=== PATIENT | female | born 1930 | race Caucasian/White ===

== ENCOUNTER 2016-11-03 20:44 | Inpatient (IN) | payer MEDICARE ==
[~2016-11-03] VITALS: Ht 165.1 cm; Wt 83.1 kg
[~2016-11-03 20:44] MED LIST: ACAR25TA2 PO; ACAR25TA9 PO; ACID1TAB7 PO; AMIT25TA PO; AMLO10TA2 PO; ASPI-621 PO; ATOR20TA PO; ATOR40TA78 PO; BACL-19 PO; BENA40TA2 PO; CLOP75TA22 PO; CYCL-259 PO; FERR325T20 PO; FLUT16SP NAS; GEMF600T3 PO; GLIP10TA20 PO; GLIP5POW PO; GLIP5TAB10 PO; HYDR-3138 PO; HYDR-3343 PO; INSU100I28 SQ-INSULIN; INSU100V13 SC; LACT1CAP24 PO; LEVO500T33 PO; LISI-167 PO; LISI-170 PO; MAGN400T26 PO; MAGN400T7 PO; MERO1PIG IV; METF10002 PO; METF850T PO; METO25TA35 PO; OMEP-110 PO; POLY17PO5 PO; RIVA15TA PO; RIVA20TA PO; SENN1TAB7 PO; SITA50TA PO; SPIR25TA3 PO; SPIR50TA2 PO; SULF1TAB24 PO; TICA90TA PO; TRAM-28 PO; TRAM50TA2 PO
[2016-11-03] MEDS ORDERED: SODIUM CHLORIDE 0.9% 1,000 ML IV ONE (21:08)
[2016-11-03] MEDS ORDERED: ROSU20TA PO (21:27)
[2016-11-03] MEDS ORDERED: MORPHINE SULFATE 4 MG/ML, 1ML IVPush PRN (21:30)
[2016-11-03] MEDS ORDERED: SODIUM CHLORIDE FLUSH 10ML SYR IVF ONE (21:30)
[2016-11-03 21:39] LABS: ASPARTATE AMINO TRANSFERASE 12 U/L (15-37); BLOOD UREA NITROGEN 17 mg/dL (7-18)
[2016-11-03 21:46] LABS: IS PT STATUS REG ER OR PRE ER? YES
[2016-11-03 23:57] VITALS: BP 190/77
[2016-11-04] MEDS ORDERED: HYDROcodone/APAP 5/325 TABLET PO SCH
[2016-11-04 00:04] VITALS: BP 190/77
[2016-11-04 01:09] VITALS: BP 169/81
[2016-11-04] MEDS: ATORVASTATIN 40 MG TABLET PO SCH ×2 (01:13→20:52)
[2016-11-04] MEDS: HEPARIN 5,000 UNITS/ML, 1ML SQ SCH ×3 (01:13→16:31)
[2016-11-04] MEDS: SODIUM CHLORIDE FLUSH 10ML SYR IVF SCH ×3 (01:14→20:52)
[2016-11-04] MEDS: INSULIN DETEMIR 100 UNITS/ML, PEN SQ-INSULIN SCH ×3 (01:14→20:55)
[2016-11-04 03:34] LABS: IS PT STATUS REG ER OR PRE ER? NO
[2016-11-04] MEDS: METOPROLOL TARTRATE 25 MG TABLET PO SCH ×2 (06:07→18:13)
[2016-11-04 08:22] VITALS: BP 144/77
[2016-11-04] MEDS: ACARBOSE 50 MG TABLET PO SCH ×3 (08:32→16:31)
[2016-11-04] MEDS: SITAGLIPTIN 50MG TABLET PO SCH (08:34)
[2016-11-04] MEDS: CLOPIDOGREL 75 MG TABLET PO SCH (08:34)
[2016-11-04] MEDS: LISINOPRIL 20 MG TABLET PO SCH (08:34)
[2016-11-04] MEDS: SENNA/DOCUSATE TABLET PO SCH (08:35)
[2016-11-04 09:30] LABS: IS PT STATUS REG ER OR PRE ER? NO
[2016-11-04] MEDS: TIZANIDINE 4MG TABLET PO SCH ×2 (11:52→20:52)
[2016-11-04] MEDS: HYDROcodone/APAP 5/325 TABLET PO PRN ×2 (12:25→18:46)
[2016-11-04 14:52] VITALS: BP 123/72
[2016-11-04] MEDS ORDERED: ONDANSETRON 2MG/ML, 2ML IVPush PRN ×2 (16:00)
[2016-11-04] MEDS ORDERED: ACETAMINOPHEN 325 MG TABLET PO PRN ×2 (16:00)
[2016-11-04] MEDS ORDERED: BISACODYL 10 MG SUPP PR PRN ×2 (16:00)
[2016-11-04] MEDS ORDERED: NITROGLYCERIN 0.4 MG BOTTLE (25 TABS) SL PRN ×2 (16:00)
[2016-11-04] MEDS ORDERED: POLYETHYLENE GLYCOL 17 GM PACKET PO PRN ×2 (16:00)
[2016-11-04] MEDS ORDERED: OXYcodone IR 5MG TABLET PO PRN ×2 (16:00)
[2016-11-04 20:48] VITALS: BP 137/75
[2016-11-05] MEDS: HEPARIN 5,000 UNITS/ML, 1ML SQ SCH ×3 (00:24→21:13)
[2016-11-05 00:45] VITALS: BP 118/70
[2016-11-05] MEDS: TIZANIDINE 4MG TABLET PO SCH ×3 (03:54→21:13)
[2016-11-05 05:12] LABS: IS PT STATUS REG ER OR PRE ER? NO
[2016-11-05] MEDS: HYDROcodone/APAP 5/325 TABLET PO PRN ×2 (05:42→21:30)
[2016-11-05] MEDS: METOPROLOL TARTRATE 25 MG TABLET PO SCH ×2 (05:43→21:13)
[2016-11-05] MEDS: ACARBOSE 50 MG TABLET PO SCH ×3 (07:00→16:00)
[2016-11-05] MEDS: INSULIN DETEMIR 100 UNITS/ML, PEN SQ-INSULIN SCH ×2 (08:43→21:14)
[2016-11-05] MEDS: SENNA/DOCUSATE TABLET PO SCH (08:43)
[2016-11-05] MEDS: CLOPIDOGREL 75 MG TABLET PO SCH (08:54)
[2016-11-05] MEDS: SITAGLIPTIN 50MG TABLET PO SCH ×2 (08:54→11:57)
[2016-11-05] MEDS: SODIUM CHLORIDE FLUSH 10ML SYR IVF SCH ×2 (08:55→21:14)
[2016-11-05] MEDS: LISINOPRIL 20 MG TABLET PO SCH (08:55)
[2016-11-05 08:59] VITALS: BP 124/79
[2016-11-05] MEDS ORDERED: REGADENOSON 0.4 MG/5 ML SYRINGE ONE (10:03)
[2016-11-05 14:30] VITALS: BP 125/74
[2016-11-05] MEDS ORDERED: SODIUM CHLORIDE 0.9% 1,000 ML IV SCH ×2 (14:30→16:12)
[2016-11-05] MEDS ORDERED: MIDAZOLAM 1 MG/ML, 5ML ONE (15:03)
[2016-11-05] MEDS ORDERED: FENTANYL PF 100 MCG/2ML ONE (15:03)
[2016-11-05] MEDS ORDERED: LIDOCAINE 2%, 20ML ONE (15:04)
[2016-11-05] MEDS ORDERED: BIVALIRUDIN 250 MG ONE (15:04)
[2016-11-05] MEDS ORDERED: HEPARIN 1,000 UNITS/ML, 10ML ONE (15:04)
[2016-11-05] MEDS ORDERED: VERAPAMIL 2.5 MG/ML, 2ML ONE (15:04)
[2016-11-05] MEDS ORDERED: TICAGRELOR 90 MG TABLET ONE (15:04)
[2016-11-05 19:15] VITALS: BP 162/85
[2016-11-05] MEDS: ATORVASTATIN 40 MG TABLET PO SCH (21:13)
[2016-11-06 01:22] VITALS: BP 111/67
[2016-11-06 05:38] LABS: BLOOD UREA NITROGEN 14 mg/dL (7-18)
[2016-11-06] MEDS: METOPROLOL TARTRATE 25 MG TABLET PO SCH (06:27)
[2016-11-06] MEDS: HYDROcodone/APAP 5/325 TABLET PO PRN (06:28)
[2016-11-06] MEDS: TIZANIDINE 4MG TABLET PO SCH (06:28)
[2016-11-06] MEDS: HEPARIN 5,000 UNITS/ML, 1ML SQ SCH (06:28)
[2016-11-06 08:40] VITALS: BP 107/59
[2016-11-06] MEDS: ACARBOSE 50 MG TABLET PO SCH (08:42)
[2016-11-06] MEDS: CLOPIDOGREL 75 MG TABLET PO SCH (08:45)
[2016-11-06] MEDS: INSULIN DETEMIR 100 UNITS/ML, PEN SQ-INSULIN SCH (08:45)
[2016-11-06] MEDS: LISINOPRIL 20 MG TABLET PO SCH (08:45)
[2016-11-06] MEDS: SODIUM CHLORIDE FLUSH 10ML SYR IVF SCH (08:46)
[2016-11-06] MEDS: SENNA/DOCUSATE TABLET PO SCH (08:46)
[2016-11-06] MEDS: SITAGLIPTIN 50MG TABLET PO SCH (08:46)
== END 2016-11-06 11:50 | disposition home or self-care (01) | DRG 287 ==
LOC: ED 22:18 → EDIP 22:42 → 5SO 23:51 → DCLOUNGE 11-06 10:41
PROVIDERS: ADMIT Internal Medicine; ATTEND Internal Medicine
PROC: 4A023N7 Measurement of Cardiac Sampling and Pressure, Left Heart, Percutaneous Approach (ICD-10-PCS; principal; 2016-11-05)
PROC: B2111ZZ Fluoroscopy of Multiple Coronary Arteries using Low Osmolar Contrast (ICD-10-PCS; 2016-11-05)
PROC: B2151ZZ Fluoroscopy of Left Heart using Low Osmolar Contrast (ICD-10-PCS; 2016-11-05)
DX: T82.855A Stenosis of coronary artery stent, initial encounter (principal); I13.0 Hypertensive heart and chronic kidney disease with heart failure and stage 1 through stage 4 chronic kidney disease, or unspecified chronic kidney disease; I50.32 Chronic diastolic (congestive) heart failure; I38 Endocarditis, valve unspecified; E11.22 Type 2 diabetes mellitus with diabetic chronic kidney disease; E11.65 Type 2 diabetes mellitus with hyperglycemia; E78.5 Hyperlipidemia, unspecified; G89.29 Other chronic pain; I25.10 Atherosclerotic heart disease of native coronary artery without angina pectoris; I45.10 Unspecified right bundle-branch block; M19.90 Unspecified osteoarthritis, unspecified site; N18.3 Chronic kidney disease, stage 3 (moderate); Z79.4 Long term (current) use of insulin; Z86.711 Personal history of pulmonary embolism; Z86.718 Personal history of other venous thrombosis and embolism; I25.2 Old myocardial infarction; Z87.891 Personal history of nicotine dependence; Z90.49 Acquired absence of other specified parts of digestive tract; Z79.899 Other long term (current) drug therapy; Z88.8 Allergy status to other drugs, medicaments and biological substances; Z90.710 Acquired absence of both cervix and uterus; K04.7 Periapical abscess without sinus
CPT/HCPCS: 36415; 71010; 78452; 80048; 80053; 82962; 83036; 83880; 84484; 85025; 85610; 85730; 93005; 93017; 93458; 99156; 99157; 99285; C1760; C1769; C1894; J0583; J1644; J2250; J2785; J3010; J3490; A9502; C9898; J1815; J7030; Q9967

== ENCOUNTER → 2017-02-22 | Outpatient (CLI) | payer MEDICARE ==
[~2017-02-22] MED LIST changes: -CLOP75TA22 PO; +CLOP75TA52 PO; +FERR325T18 PO; -FERR325T20 PO; +GLIP-164 PO; -GLIP10TA20 PO; -HYDR-3138 PO; +HYDR-3237 PO; -LEVO500T33 PO; +LEVO500T47 PO; +ROSU20TA PO; -TRAM-28 PO; +TRAM-47 PO
== END | disposition home or self-care (01) ==
LOC: CFH 14:11
PROVIDERS: ATTEND Physician Assistant
DX: I35.1 Nonrheumatic aortic (valve) insufficiency (principal); I10 Essential (primary) hypertension; E78.5 Hyperlipidemia, unspecified; I25.2 Old myocardial infarction
CPT/HCPCS: 93306

== ENCOUNTER → 2017-03-12 | Outpatient (CLI) | payer MEDICARE | END | disposition home or self-care (01) | LOC: CFH 07:10 | PROVIDERS: ATTEND Family Medicine | DX: M48.02 Spinal stenosis, cervical region (principal); M47.812 Spondylosis without myelopathy or radiculopathy, cervical region; M47.813 Spondylosis without myelopathy or radiculopathy, cervicothoracic region; G89.29 Other chronic pain | CPT/HCPCS: 72141 ==

== ENCOUNTER 2017-10-15 16:04 | Inpatient (IN) | payer MEDICARE ==
[~2017-10-15] VITALS: Ht 165.1 cm; Wt 82.5 kg
[2017-10-15 17:01] LABS: BASOPHILS # (AUTO) 0.03 x10^3/uL (0-0.1); BASOPHILS % (AUTO) 1 % (0-1); EOSINOPHILS # (AUTO) 0.06 x10^3/uL (0-0.4); EOSINOPHILS % (AUTO) 1 % (1-7); LYMPHOCYTES # (AUTO) 0.84 x10^3/uL (1-3.4); LYMPHOCYTES % (AUTO) 14 % (22-44); MD NO; MEAN CORPUSCULAR HGB CONC 33.2 g/dL (32.4-35.8); MEAN CORPUSCULAR VOLUME 90.5 fL (80-100); MEAN PLATELET VOLUME 11.6 fL (7.4-10.4); MONOCYTES # (AUTO) 0.57 x10^3/uL (0.2-0.8); MONOCYTES % (AUTO) 9 % (2-9); NEUTROPHILS # (AUTO) 4.54 x10^3/uL (1.8-6.8); NEUTROPHILS % (AUTO) 75 % (42-75); PLATELET COUNT 168 x10^3/uL (130-400); RED BLOOD COUNT 4.43 x10^6/uL (3.82-5.3); RED CELL DISTRIBUTION WIDTH 14.7 % (9.6-15.2)
[2017-10-15] MEDS ORDERED: SODIUM CHLORIDE FLUSH 10ML SYR IVF ONE (19:30)
[2017-10-15 19:50] LABS: ALANINE AMINOTRANSFERASE 18 U/L (12-78); ALBUMIN 3.5 g/dL (3.4-5.0); ANION GAP 10 mmol/L (5-15); CALCIUM 8.9 mg/dL (8.5-10.1); CHLORIDE 104 mmol/L (98-107); CREATININE 1.08 mg/dL (0.55-1.02)
[2017-10-15 19:52] LABS: ALKALINE PHOSPHATASE 90 U/L (45-117); TOTAL PROTEIN 7.5 g/dL (6.4-8.2)
[2017-10-15] MEDS ORDERED: SODIUM CHLORIDE FLUSH 10ML SYR IVF PRN (20:00)
[2017-10-15] MEDS ORDERED: BISACODYL 10 MG SUPP PR PRN (20:00)
[2017-10-15] MEDS ORDERED: ONDANSETRON 2MG/ML, 2ML IVPush PRN (20:00)
[2017-10-15] MEDS ORDERED: LABETALOL 5MG/ML, 20ML IVPush PRN (20:00)
[2017-10-15] MEDS ORDERED: POLYETHYLENE GLYCOL 17 GM PACKET PO PRN (20:00)
[2017-10-15] MEDS ORDERED: INSU100I32 SC (20:12)
[2017-10-15] MEDS: INSULIN GLARGINE 100 UNITS/ML, PEN SQ-INSULIN SCH (21:00)
[2017-10-15 21:11] LABS: HEMOGLOBIN A1C 5.9 % (4.2-6.3)
[2017-10-15 23:00] VITALS: BP 163/85
[2017-10-15] MEDS: ACARBOSE 50 MG TABLET PO SCH (23:44)
[2017-10-15] MEDS: OMEPRAZOLE 20 MG CAPSULE.DR PO SCH (23:44)
[2017-10-15] MEDS: ATORVASTATIN 40 MG TABLET PO SCH (23:44)
[2017-10-15] MEDS: SODIUM CHLORIDE FLUSH 10ML SYR IVF SCH (23:44)
[2017-10-15] MEDS: METOPROLOL TARTRATE 25 MG TABLET PO SCH (23:45)
[2017-10-15] MEDS: ACETAMINOPHEN 325 MG TABLET PO PRN (23:46)
[2017-10-16 02:00] VITALS: BP 128/84
[2017-10-16 05:20] VITALS: BP 128/72
[2017-10-16] MEDS: METOPROLOL TARTRATE 25 MG TABLET PO SCH ×2 (05:23→18:20)
[2017-10-16 06:42] VITALS: BP 135/74
[2017-10-16] MEDS: ACARBOSE 50 MG TABLET PO SCH ×3 (09:00→20:12)
[2017-10-16] MEDS: SODIUM CHLORIDE FLUSH 10ML SYR IVF SCH ×2 (09:00→20:35)
[2017-10-16] MEDS: LISINOPRIL 20 MG TABLET PO SCH (09:16)
[2017-10-16] MEDS: CLOPIDOGREL 75 MG TABLET PO SCH (09:16)
[2017-10-16] MEDS: OMEPRAZOLE 20 MG CAPSULE.DR PO SCH ×2 (09:16→20:12)
[2017-10-16] MEDS: SENNA/DOCUSATE TABLET PO SCH (09:29)
[2017-10-16] MEDS: INSULIN GLARGINE 100 UNITS/ML, PEN SQ-INSULIN SCH ×2 (09:39→20:34)
[2017-10-16] MEDS: SITAGLIPTIN 50MG TABLET PO SCH (09:44)
[2017-10-16] MEDS: ACETAMINOPHEN 325 MG TABLET PO PRN ×3 (10:27→22:40)
[2017-10-16] MEDS: INSULIN LISPRO 100 UNITS/ML, PEN SQ-INSULIN SCH ×3 (11:00→20:13)
[2017-10-16 11:09] LABS: ANION GAP 8 mmol/L (5-15); CHLORIDE 107 mmol/L (98-107)
[2017-10-16 11:10] LABS: CREATININE 1.01 mg/dL (0.55-1.02)
[2017-10-16 15:51] VITALS: BP 129/71
[2017-10-16 19:52] VITALS: BP 169/84
[2017-10-16] MEDS: ATORVASTATIN 40 MG TABLET PO SCH (20:12)
[2017-10-17 01:34] VITALS: BP 163/88
[2017-10-17] MEDS: METOPROLOL TARTRATE 25 MG TABLET PO SCH ×2 (05:23→17:04)
[2017-10-17] MEDS: INSULIN LISPRO 100 UNITS/ML, PEN SQ-INSULIN SCH (07:00)
[2017-10-17 07:20] VITALS: BP 188/80
[2017-10-17] MEDS: SITAGLIPTIN 50MG TABLET PO SCH (08:10)
[2017-10-17] MEDS: SENNA/DOCUSATE TABLET PO SCH (08:11)
[2017-10-17] MEDS: OMEPRAZOLE 20 MG CAPSULE.DR PO SCH ×2 (08:11→20:04)
[2017-10-17] MEDS: CLOPIDOGREL 75 MG TABLET PO SCH (08:11)
[2017-10-17] MEDS: LISINOPRIL 20 MG TABLET PO SCH (08:11)
[2017-10-17] MEDS: SODIUM CHLORIDE FLUSH 10ML SYR IVF SCH ×2 (08:12→20:18)
[2017-10-17] MEDS: INSULIN GLARGINE 100 UNITS/ML, PEN SQ-INSULIN SCH ×2 (08:13→20:20)
[2017-10-17] MEDS: ACARBOSE 50 MG TABLET PO SCH ×3 (08:16→20:03)
[2017-10-17 09:40] VITALS: BP 152/78
[2017-10-17] MEDS: ACETAMINOPHEN 325 MG TABLET PO PRN ×3 (10:15→22:47)
[2017-10-17 13:15] VITALS: BP 159/76
[2017-10-17 19:16] VITALS: BP 161/74
[2017-10-17] MEDS: ATORVASTATIN 40 MG TABLET PO SCH (20:04)
[2017-10-18 01:33] VITALS: BP 169/80
[2017-10-18 01:34] VITALS: BP 160/76
[2017-10-18] MEDS: METOPROLOL TARTRATE 25 MG TABLET PO SCH ×2 (06:22→17:22)
[2017-10-18 07:03] VITALS: BP 165/85
[2017-10-18] MEDS: OMEPRAZOLE 20 MG CAPSULE.DR PO SCH (08:59)
[2017-10-18] MEDS: SITAGLIPTIN 50MG TABLET PO SCH (08:59)
[2017-10-18] MEDS: ACETAMINOPHEN 325 MG TABLET PO PRN ×2 (08:59→17:22)
[2017-10-18] MEDS: CLOPIDOGREL 75 MG TABLET PO SCH (09:00)
[2017-10-18] MEDS: SENNA/DOCUSATE TABLET PO SCH (09:00)
[2017-10-18] MEDS: SODIUM CHLORIDE FLUSH 10ML SYR IVF SCH (09:01)
[2017-10-18] MEDS: ACARBOSE 50 MG TABLET PO SCH ×2 (09:02→17:23)
[2017-10-18] MEDS: INSULIN GLARGINE 100 UNITS/ML, PEN SQ-INSULIN SCH (09:04)
[2017-10-18] MEDS ORDERED: CELE100C PO (11:36)
[2017-10-18] MEDS ORDERED: LISI-170 PO (11:36)
[2017-10-18 12:31] VITALS: BP 145/78
[2017-10-19] MEDS ORDERED: LISINOPRIL 20 MG TABLET PO SCH (09:00)
== END 2017-10-18 17:31 | DRG 554 ==
LOC: ED 19:41 → EDIP 21:54 → 3NE 22:19
PROVIDERS: ADMIT Hospitalist; ATTEND Hospitalist
PROC: 2W3CX1Z Immobilization of Right Lower Arm using Splint (ICD-10-PCS; principal; 2017-10-15)
DX: M19.031 Primary osteoarthritis, right wrist (principal); I50.32 Chronic diastolic (congestive) heart failure; R62.7 Adult failure to thrive; D50.9 Iron deficiency anemia, unspecified; E11.9 Type 2 diabetes mellitus without complications; I11.0 Hypertensive heart disease with heart failure; I25.10 Atherosclerotic heart disease of native coronary artery without angina pectoris; M50.30 Other cervical disc degeneration, unspecified cervical region; E78.5 Hyperlipidemia, unspecified; K21.9 Gastro-esophageal reflux disease without esophagitis; M79.89 Other specified soft tissue disorders; R00.0 Tachycardia, unspecified; R53.81 Other malaise; M10.9 Gout, unspecified; R32 Unspecified urinary incontinence; Z79.4 Long term (current) use of insulin; I25.2 Old myocardial infarction; Z82.49 Family history of ischemic heart disease and other diseases of the circulatory system; Z86.711 Personal history of pulmonary embolism; Z86.718 Personal history of other venous thrombosis and embolism; Z90.710 Acquired absence of both cervix and uterus; Z95.5 Presence of coronary angioplasty implant and graft; Z88.1 Allergy status to other antibiotic agents; Z87.440 Personal history of urinary (tract) infections; Z90.49 Acquired absence of other specified parts of digestive tract
CPT/HCPCS: 29125; 36415; 80048; 80053; 82962; 83036; 84550; 85025; 99285; J1815

== ENCOUNTER → 2018-02-03 | Outpatient (CLI) | payer MEDICARE ==
[~2018-02-03] MED LIST changes: +ALEN70TA5 PO; -AMLO10TA2 PO; +AMLO10TA6 PO; +BACITRACIN 50,000 UNIT ONE; -BENA40TA2 PO; +BENA40TA3 PO; +BUPIVACAINE/PF 0.5% ONE; +CELE100C PO; +EPINEPHRINE 1 MG/ML, 1ML ONE; +GABA100C PO; -GEMF600T3 PO; +GEMF600T4 PO; +GLIP10TA13 PO; +HYDR-3245 PO; +INSU100I32 SC; -SENN1TAB7 PO; +SENN1TAB8 PO; -SPIR25TA3 PO; +SPIR25TA5 PO; -SPIR50TA2 PO; +SPIR50TA4 PO; +TRANEXAMIC ACID 100 MG/ML, 10ML ONE
[2018-02-03 13:04] LABS: BASOPHILS # (AUTO) 0.04 x10^3/uL (0-0.1); BASOPHILS % (AUTO) 1 % (0-1); EOSINOPHILS # (AUTO) 0.13 x10^3/uL (0-0.4); EOSINOPHILS % (AUTO) 2 % (1-7); LYMPHOCYTES # (AUTO) 0.89 x10^3/uL (1-3.4); LYMPHOCYTES % (AUTO) 13 % (22-44); MD NO; MEAN CORPUSCULAR HEMOGLOBIN 30.5 pg (27.0-34.8); MEAN CORPUSCULAR HGB CONC 33.4 g/dL (32.4-35.8); MEAN CORPUSCULAR VOLUME 91.3 fL (80-100); MEAN PLATELET VOLUME 11.3 fL (7.4-10.4); MONOCYTES # (AUTO) 0.53 x10^3/uL (0.2-0.8); MONOCYTES % (AUTO) 8 % (2-9); NEUTROPHILS # (AUTO) 5.32 x10^3/uL (1.8-6.8); NEUTROPHILS % (AUTO) 77 % (42-75); PLATELET COUNT 203 x10^3/uL (130-400); RED BLOOD COUNT 4.15 x10^6/uL (3.82-5.3); RED CELL DISTRIBUTION WIDTH 14.9 % (9.6-15.2)
[2018-02-03 13:06] LABS: CULTURE INDICATED? YES; MICROSCOPIC INDICATED
[2018-02-03 13:16] LABS: ALANINE AMINOTRANSFERASE 18 U/L (12-78); ALBUMIN 3.5 g/dL (3.4-5.0); ANION GAP 10 mmol/L (5-15); CALCIUM 9.4 mg/dL (8.5-10.1); CHLORIDE 106 mmol/L (98-107); CREATININE 1.25 mg/dL (0.55-1.02)
[2018-02-03 13:17] LABS: INTERNATIONAL NORMALIZED RATIO 1.04 (0.93-1.1); PROTHROMBIN TIME 10.7 Seconds (9.6-11.5)
[2018-02-03 13:19] LABS: ALKALINE PHOSPHATASE 71 U/L (45-117); BILIRUBIN,TOTAL 0.6 mg/dL (0.2-1.0); TOTAL PROTEIN 7.8 g/dL (6.4-8.2)
[2018-02-03 14:48] LABS: HCT (SEDRATE) 37.9 % (34.6-47.8)
== END | disposition home or self-care (01) ==
LOC: STAR 11:08
PROVIDERS: ATTEND Orthopaedic Surgery Orthopaedic Surgery of the Spine
DX: Z01.818 Encounter for other preprocedural examination (principal); M48.02 Spinal stenosis, cervical region
CPT/HCPCS: 36415; 71046; 80053; 81001; 85025; 85610; 85651; 85730; 87077; 87086; 87186; 93005

== ENCOUNTER 2018-02-14 06:19 | Inpatient (IN) | payer MEDICARE ==
[~2018-02-14] VITALS: Ht 165.1 cm; Wt 74.4 kg
[~2018-02-14 06:19] MED LIST changes: -BACITRACIN 50,000 UNIT ONE; -BUPIVACAINE/PF 0.5% ONE; -EPINEPHRINE 1 MG/ML, 1ML ONE; -TRANEXAMIC ACID 100 MG/ML, 10ML ONE
[2018-02-14] MEDS ORDERED: LACTATED RINGERS 1,000 ML IV SCH (06:51)
[2018-02-14] MEDS ORDERED: FENTANYL PF 250 MCG/5ML ONE (07:00)
[2018-02-14] MEDS ORDERED: PROPOFOL 10 MG/ML, 20ML ONE (07:09)
[2018-02-14] MEDS ORDERED: ROCURONIUM 10MG/ML,5ML ONE (07:11)
[2018-02-14] MEDS ORDERED: SUCCINYLCHOLINE 20 MG/ML, 10ML ONE (07:12)
[2018-02-14] MEDS ORDERED: DEXAMETHASONE 4 MG/ML, 1ML ONE ×2 (07:12)
[2018-02-14] MEDS ORDERED: ONDANSETRON 2MG/ML, 2ML ONE (07:12)
[2018-02-14] MEDS ORDERED: SODIUM CHLORIDE 0.9% PF 10ML ONE ×2 (07:13→10:47)
[2018-02-14] MEDS ORDERED: CEFAZOLIN 1,000 MG ONE ×4 (07:13→10:47)
[2018-02-14] MEDS ORDERED: PROPOFOL 50 ML ONE ×4 (07:15→10:59)
[2018-02-14] MEDS ORDERED: PROMETHAZINE 12.5 MG SUPP PR PRN (08:00)
[2018-02-14] MEDS ORDERED: ONDANSETRON 2MG/ML, 2ML IV PRN ×2 (08:00→15:00)
[2018-02-14] MEDS ORDERED: PROMETHAZINE 25 MG/ML, 1ML IV PRN (08:00)
[2018-02-14] MEDS ORDERED: HYDROmorphone 1 MG/ML, 1ML IV PRN (08:00)
[2018-02-14] MEDS ORDERED: OXYcodone 5 MG/5 ML ORAL.SOL UDC PO PRN (08:00)
[2018-02-14] MEDS ORDERED: MORPHINE SULFATE 4 MG/ML, 1ML IVPush PRN (08:00)
[2018-02-14] MEDS ORDERED: MEPERIDINE/PF 25MG/0.5ML IVPush PRN (08:00)
[2018-02-14] MEDS ORDERED: ONDANSETRON ODT 8 MG PO PRN (08:00)
[2018-02-14] MEDS ORDERED: PROMETHAZINE 25 MG/ML, 1ML IM PRN ×3 (08:00→15:00)
[2018-02-14] MEDS ORDERED: hydrALAzine 20 MG/ML, 1ML IV PRN (08:00)
[2018-02-14] MEDS ORDERED: PROMETHAZINE 25 MG SUPP PR PRN (08:00)
[2018-02-14] MEDS ORDERED: BUPIVACAINE/PF 0.5% INFIL ONE (08:48)
[2018-02-14] MEDS ORDERED: EPINEPHRINE 1 MG/ML, 1ML INFIL ONE (08:49)
[2018-02-14] MEDS ORDERED: BACITRACIN 50,000 UNIT IRRIG ONE (08:50)
[2018-02-14] MEDS ORDERED: VANCOMYCIN 1,000 MG IM ONE (11:10)
[2018-02-14] MEDS ORDERED: LABETALOL 5MG/ML, 20ML ONE (11:59)
[2018-02-14] MEDS ORDERED: VANCOMYCIN 1,000 MG ONE (11:59)
[2018-02-14] MEDS ORDERED: FENTANYL PF 100 MCG/2ML ONE (11:59)
[2018-02-14] MEDS: LABETALOL 5MG/ML, 20ML IV PRN ×4 (12:01→12:43)
[2018-02-14] MEDS: FENTANYL PF 100 MCG/2ML IV PRN ×3 (12:07→13:12)
[2018-02-14] MEDS ORDERED: KETOROLAC 30 MG/1 ML ONE (12:16)
[2018-02-14] MEDS ORDERED: OXYcodone 5 MG/5 ML ORAL.SOL UDC ONE (12:16)
[2018-02-14] MEDS ORDERED: KETOROLAC 30 MG/1 ML IVPush SCH ×2 (12:30→12:32)
[2018-02-14] MEDS ORDERED: hydrALAzine 20 MG/ML, 1ML ONE (12:55)
[2018-02-14 14:05] VITALS: BP 107/34
[2018-02-14 14:25] VITALS: BP 117/51
[2018-02-14] MEDS ORDERED: MAGNESIUM HYDROXIDE 8%, 30ML UDC PO PRN (15:00)
[2018-02-14] MEDS ORDERED: LABETALOL 5MG/ML, 20ML IV PRN (15:00)
[2018-02-14] MEDS ORDERED: DIAZEPAM 5 MG TABLET PO PRN (15:00)
[2018-02-14] MEDS ORDERED: DIPHENHYDRAMINE 50 MG CAPSULE PO PRN (15:00)
[2018-02-14] MEDS ORDERED: DIPHENHYDRAMINE 50 MG/ML, 1ML IM PRN (15:00)
[2018-02-14] MEDS ORDERED: BISACODYL 10 MG SUPP PR PRN (15:00)
[2018-02-14] MEDS ORDERED: LORazepam 1MG TABLET PO PRN (15:00)
[2018-02-14] MEDS ORDERED: DIAZEPAM 5 MG/ML, 2ML IV PRN (15:00)
[2018-02-14] MEDS ORDERED: DIPHENHYDRAMINE 50 MG/ML, 1ML IVPush PRN (15:00)
[2018-02-14] MEDS ORDERED: OXYcodone/APAP 5/325MG TABLET PO PRN (15:30)
[2018-02-14] MEDS ORDERED: morphine SULFATE 10 MG/ML, 1ML IV PRN (15:30)
[2018-02-14] MEDS ORDERED: OXYcodone IR 5MG TABLET PO PRN ×2 (15:30→21:30)
[2018-02-14] MEDS ORDERED: ACETAMINOPHEN 500 MG TABLET PO PRN (15:30)
[2018-02-14] MEDS ORDERED: SODIUM CHLORIDE 0.9% 1,000ML IV PRN (15:30)
[2018-02-14] MEDS ORDERED: PHENYLEPHRINE 10 MG/ML ONE (16:22)
[2018-02-14] MEDS: METOPROLOL TARTRATE 25 MG TABLET PO SCH (17:53)
[2018-02-14] MEDS: NS + 20MEQ KCL 1,000 ML IV SCH (17:53)
[2018-02-14] MEDS: GABAPENTIN 100 MG CAPSULE PO SCH ×2 (17:53→20:31)
[2018-02-14] MEDS ORDERED: KETOROLAC 30 MG/1 ML IV PRN (18:00)
[2018-02-14] MEDS: ACARBOSE 50 MG TABLET PO SCH ×2 (18:04→20:30)
[2018-02-14 18:42] VITALS: BP 137/66
[2018-02-14] MEDS: CEFAZOLIN PMX 1GM/50ML 50 ML IVPB SCH (20:01)
[2018-02-14] MEDS: OMEPRAZOLE 20 MG CAPSULE.DR PO SCH (20:30)
[2018-02-14] MEDS: OXYcodone/APAP 5/325MG TABLET PO PRN (20:30)
[2018-02-14] MEDS: INSULIN REGULAR 100 UNITS/ML, 3ML VIAL SQ-INSULIN SCH (21:00)
[2018-02-14] MEDS ORDERED: ZOLPIDEM 5MG TABLET PO PRN (21:00)
[2018-02-14] MEDS: ATORVASTATIN 40 MG TABLET PO SCH (22:30)
[2018-02-14] MEDS: CYCLOBENZAPRINE 10 MG TABLET PO SCH (22:30)
[2018-02-15 00:43] VITALS: BP 142/80
[2018-02-15] MEDS: CEFAZOLIN PMX 1GM/50ML 50 ML IVPB SCH (03:43)
[2018-02-15] MEDS: NS + 20MEQ KCL 1,000 ML IV SCH ×3 (03:43→21:00)
[2018-02-15 04:41] VITALS: BP 141/68
[2018-02-15 04:54] LABS: BASOPHILS # (AUTO) 0.03 x10^3/uL (0-0.1); BASOPHILS % (AUTO) 0 % (0-1); EOSINOPHILS # (AUTO) 0.04 x10^3/uL (0-0.4); EOSINOPHILS % (AUTO) 1 % (1-7); LYMPHOCYTES % (AUTO) 14 % (22-44); MD NO; MEAN CORPUSCULAR HEMOGLOBIN 30.4 pg (27.0-34.8); MEAN CORPUSCULAR HGB CONC 33.1 g/dL (32.4-35.8); MEAN CORPUSCULAR VOLUME 92.1 fL (80-100); MEAN PLATELET VOLUME 11.1 fL (7.4-10.4); MONOCYTES # (AUTO) 0.75 x10^3/uL (0.2-0.8); MONOCYTES % (AUTO) 10 % (2-9); NEUTROPHILS # (AUTO) 5.99 x10^3/uL (1.8-6.8); NEUTROPHILS % (AUTO) 76 % (42-75); PLATELET COUNT 165 x10^3/uL (130-400); RED BLOOD COUNT 3.84 x10^6/uL (3.82-5.3); RED CELL DISTRIBUTION WIDTH 15.5 % (9.6-15.2)
[2018-02-15 06:19] VITALS: BP 130/77
[2018-02-15] MEDS: METOPROLOL TARTRATE 25 MG TABLET PO SCH ×2 (06:19→16:47)
[2018-02-15] MEDS: INSULIN REGULAR 100 UNITS/ML, 3ML VIAL SQ-INSULIN SCH ×4 (07:00→21:23)
[2018-02-15 08:02] VITALS: BP 157/77
[2018-02-15] MEDS: SENNA/DOCUSATE TABLET PO SCH (08:41)
[2018-02-15] MEDS: ACARBOSE 50 MG TABLET PO SCH ×3 (08:41→21:17)
[2018-02-15] MEDS: GABAPENTIN 100 MG CAPSULE PO SCH ×3 (08:42→21:18)
[2018-02-15] MEDS: OXYcodone/APAP 5/325MG TABLET PO PRN ×2 (08:42→13:24)
[2018-02-15] MEDS: OMEPRAZOLE 20 MG CAPSULE.DR PO SCH ×2 (08:42→21:18)
[2018-02-15] MEDS: LINAGLIPTIN 5 MG TAB PO SCH (08:42)
[2018-02-15] MEDS: LISINOPRIL 20 MG TABLET PO SCH (08:42)
[2018-02-15] MEDS ORDERED: DEXAMETHASONE 4 MG/ML, 1ML ONE ×2 (12:44→19:41)
[2018-02-15] MEDS: DEXAMETHASONE 4 MG/ML, 5ML IV PRN ×2 (12:47→19:44)
[2018-02-15 14:30] VITALS: BP 145/72
[2018-02-15 20:36] VITALS: BP 148/78
[2018-02-15] MEDS: ATORVASTATIN 40 MG TABLET PO SCH (21:17)
[2018-02-15] MEDS: CYCLOBENZAPRINE 10 MG TABLET PO SCH (21:17)
[2018-02-16] MEDS: NS + 20MEQ KCL 1,000 ML IV SCH ×2 (00:54→17:00)
[2018-02-16 03:23] VITALS: BP 165/86
[2018-02-16] MEDS: METOPROLOL TARTRATE 25 MG TABLET PO SCH ×2 (05:31→18:20)
[2018-02-16 05:40] LABS: BASOPHILS % (AUTO) 0 % (0-1); EOSINOPHILS % (AUTO) 0 % (1-7); LYMPHOCYTES # (AUTO) 0.53 x10^3/uL (1-3.4); LYMPHOCYTES % (AUTO) 7 % (22-44); MD NO; MEAN CORPUSCULAR HEMOGLOBIN 30.7 pg (27.0-34.8); MEAN CORPUSCULAR HGB CONC 33.9 g/dL (32.4-35.8); MEAN CORPUSCULAR VOLUME 90.4 fL (80-100); MEAN PLATELET VOLUME 11.2 fL (7.4-10.4); MONOCYTES # (AUTO) 0.48 x10^3/uL (0.2-0.8); MONOCYTES % (AUTO) 6 % (2-9); NEUTROPHILS % (AUTO) 87 % (42-75); PLATELET COUNT 169 x10^3/uL (130-400); RED BLOOD COUNT 3.89 x10^6/uL (3.82-5.3); RED CELL DISTRIBUTION WIDTH 15.2 % (9.6-15.2)
[2018-02-16] MEDS: INSULIN REGULAR 100 UNITS/ML, 3ML VIAL SQ-INSULIN SCH ×4 (06:09→21:31)
[2018-02-16] MEDS ORDERED: ALENDRONATE 70 MG TABLET PO SCH (06:30)
[2018-02-16 07:44] VITALS: BP 148/80
[2018-02-16] MEDS ORDERED: DEXAMETHASONE 4 MG/ML, 1ML ONE ×2 (08:45→15:25)
[2018-02-16] MEDS: DEXAMETHASONE 4 MG/ML, 5ML IV PRN ×2 (08:48→15:29)
[2018-02-16] MEDS: ACARBOSE 50 MG TABLET PO SCH ×3 (09:07→21:03)
[2018-02-16] MEDS: SENNA/DOCUSATE TABLET PO SCH (09:07)
[2018-02-16] MEDS: GABAPENTIN 100 MG CAPSULE PO SCH ×3 (09:08→21:02)
[2018-02-16] MEDS: OMEPRAZOLE 20 MG CAPSULE.DR PO SCH ×2 (09:08→21:02)
[2018-02-16] MEDS: LINAGLIPTIN 5 MG TAB PO SCH (09:08)
[2018-02-16] MEDS: LISINOPRIL 20 MG TABLET PO SCH (09:08)
[2018-02-16] MEDS: OXYcodone/APAP 5/325MG TABLET PO PRN ×2 (10:52→21:03)
[2018-02-16 12:58] VITALS: BP 186/93
[2018-02-16 14:03] VITALS: BP 151/81
[2018-02-16 19:35] VITALS: BP 128/78
[2018-02-16] MEDS: ATORVASTATIN 40 MG TABLET PO SCH (21:03)
[2018-02-16] MEDS: CYCLOBENZAPRINE 10 MG TABLET PO SCH (21:03)
[2018-02-17 00:53] VITALS: BP 170/101
[2018-02-17 02:55] VITALS: BP 147/81
[2018-02-17] MEDS: NS + 20MEQ KCL 1,000 ML IV SCH ×3 (03:00→23:00)
[2018-02-17 05:32] LABS: BASOPHILS # (AUTO) 0.03 x10^3/uL (0-0.1); BASOPHILS % (AUTO) 0 % (0-1); EOSINOPHILS % (AUTO) 0 % (1-7); LYMPHOCYTES # (AUTO) 0.88 x10^3/uL (1-3.4); LYMPHOCYTES % (AUTO) 9 % (22-44); MD NO; MEAN CORPUSCULAR HEMOGLOBIN 30.6 pg (27.0-34.8); MEAN CORPUSCULAR HGB CONC 33.2 g/dL (32.4-35.8); MEAN CORPUSCULAR VOLUME 92.1 fL (80-100); MEAN PLATELET VOLUME 10.9 fL (7.4-10.4); MONOCYTES # (AUTO) 0.89 x10^3/uL (0.2-0.8); MONOCYTES % (AUTO) 9 % (2-9); NEUTROPHILS # (AUTO) 8.06 x10^3/uL (1.8-6.8); NEUTROPHILS % (AUTO) 82 % (42-75); PLATELET COUNT 185 x10^3/uL (130-400); RED BLOOD COUNT 3.81 x10^6/uL (3.82-5.3); RED CELL DISTRIBUTION WIDTH 15.3 % (9.6-15.2)
[2018-02-17] MEDS: METOPROLOL TARTRATE 25 MG TABLET PO SCH ×2 (06:19→17:24)
[2018-02-17 07:34] VITALS: BP 166/81
[2018-02-17] MEDS: INSULIN REGULAR 100 UNITS/ML, 3ML VIAL SQ-INSULIN SCH ×4 (07:43→21:24)
[2018-02-17] MEDS: LISINOPRIL 20 MG TABLET PO SCH (07:43)
[2018-02-17] MEDS: SENNA/DOCUSATE TABLET PO SCH (07:43)
[2018-02-17] MEDS: GABAPENTIN 100 MG CAPSULE PO SCH ×3 (07:43→20:40)
[2018-02-17] MEDS: OMEPRAZOLE 20 MG CAPSULE.DR PO SCH ×2 (07:43→20:40)
[2018-02-17] MEDS: ACARBOSE 50 MG TABLET PO SCH ×3 (07:43→20:40)
[2018-02-17] MEDS: LINAGLIPTIN 5 MG TAB PO SCH (07:51)
[2018-02-17] MEDS: OXYcodone/APAP 5/325MG TABLET PO PRN ×3 (08:41→20:40)
[2018-02-17 13:40] VITALS: BP 118/70
[2018-02-17] MEDS: CLOPIDOGREL 75 MG TABLET PO SCH (17:26)
[2018-02-17 19:51] VITALS: BP 110/70
[2018-02-17] MEDS: CYCLOBENZAPRINE 10 MG TABLET PO SCH (20:40)
[2018-02-17] MEDS: ATORVASTATIN 40 MG TABLET PO SCH (20:40)
[2018-02-18 01:45] VITALS: BP 94/60
[2018-02-18 06:01] LABS: BASOPHILS # (AUTO) 0.03 x10^3/uL (0-0.1); BASOPHILS % (AUTO) 0 % (0-1); EOSINOPHILS % (AUTO) 2 % (1-7); LYMPHOCYTES # (AUTO) 1.81 x10^3/uL (1-3.4); LYMPHOCYTES % (AUTO) 21 % (22-44); MD NO; MEAN CORPUSCULAR HEMOGLOBIN 30.5 pg (27.0-34.8); MEAN CORPUSCULAR HGB CONC 33.2 g/dL (32.4-35.8); MEAN CORPUSCULAR VOLUME 92.1 fL (80-100); MEAN PLATELET VOLUME 11.3 fL (7.4-10.4); MONOCYTES # (AUTO) 0.81 x10^3/uL (0.2-0.8); MONOCYTES % (AUTO) 9 % (2-9); NEUTROPHILS % (AUTO) 67 % (42-75); PLATELET COUNT 178 x10^3/uL (130-400); RED CELL DISTRIBUTION WIDTH 15.8 % (9.6-15.2)
[2018-02-18 06:26] VITALS: BP 118/74
[2018-02-18] MEDS: INSULIN REGULAR 100 UNITS/ML, 3ML VIAL SQ-INSULIN SCH ×2 (06:26→12:06)
[2018-02-18] MEDS: METOPROLOL TARTRATE 25 MG TABLET PO SCH (06:26)
[2018-02-18] MEDS: NS + 20MEQ KCL 1,000 ML IV SCH (07:15)
[2018-02-18] MEDS: ACARBOSE 50 MG TABLET PO SCH (07:48)
[2018-02-18] MEDS: OXYcodone/APAP 5/325MG TABLET PO PRN ×2 (07:48→13:05)
[2018-02-18] MEDS: OMEPRAZOLE 20 MG CAPSULE.DR PO SCH (07:49)
[2018-02-18] MEDS: LINAGLIPTIN 5 MG TAB PO SCH (07:49)
[2018-02-18] MEDS: CLOPIDOGREL 75 MG TABLET PO SCH (07:49)
[2018-02-18] MEDS: LISINOPRIL 20 MG TABLET PO SCH (07:49)
[2018-02-18] MEDS: GABAPENTIN 100 MG CAPSULE PO SCH (07:49)
[2018-02-18] MEDS: SENNA/DOCUSATE TABLET PO SCH (07:49)
[2018-02-18 13:51] VITALS: BP 130/79
== END 2018-02-18 14:46 | DRG 29 ==
LOC: OUT 06:19 → 4NOR 13:45 → OUT 14:43
PROVIDERS: ADMIT Orthopaedic Surgery Orthopaedic Surgery of the Spine; ATTEND Orthopaedic Surgery Orthopaedic Surgery of the Spine
PROC: 0RT30ZZ Resection of Cervical Vertebral Disc, Open Approach (ICD-10-PCS; 2018-02-14)
PROC: 4A11X4G Monitoring of Peripheral Nervous Electrical Activity, Intraoperative, External Approach (ICD-10-PCS; 2018-02-14)
PROC: 00NW0ZZ Release Cervical Spinal Cord, Open Approach (ICD-10-PCS; 2018-02-14)
PROC: 0RB30ZZ Excision of Cervical Vertebral Disc, Open Approach (ICD-10-PCS; 2018-02-14)
PROC: 0RG20A0 Fusion of 2 or more Cervical Vertebral Joints with Interbody Fusion Device, Anterior Approach, Anterior Column, Open Approach (ICD-10-PCS; principal; 2018-02-14 08:00)
DX: G95.20 Unspecified cord compression (principal); M50.021 Cervical disc disorder at C4-C5 level with myelopathy; M48.02 Spinal stenosis, cervical region; E11.9 Type 2 diabetes mellitus without complications; I10 Essential (primary) hypertension; M43.12 Spondylolisthesis, cervical region; E78.5 Hyperlipidemia, unspecified; K21.9 Gastro-esophageal reflux disease without esophagitis; M54.12 Radiculopathy, cervical region; M25.78 Osteophyte, vertebrae; R13.10 Dysphagia, unspecified; I25.10 Atherosclerotic heart disease of native coronary artery without angina pectoris; Z88.6 Allergy status to analgesic agent; Z88.1 Allergy status to other antibiotic agents; Z90.49 Acquired absence of other specified parts of digestive tract; Z90.89 Acquired absence of other organs; Z95.5 Presence of coronary angioplasty implant and graft; Z78.1 Physical restraint status; I25.2 Old myocardial infarction
CPT/HCPCS: 36415; 72040; 82962; 85025; 86850; 86900; C1713; G0378; J0171; J0690; J1100; J1815; J1885; J2405; J2704; J3010; J3370; J3480; J3490; C1760; C1762; J0330; J0360; J2370; J7120

== ENCOUNTER 2018-02-26 19:05 | Inpatient (IN) | payer MEDICARE ==
[~2018-02-26] VITALS: Ht 165.1 cm; Wt 89.9 kg
[2018-02-26] MEDS ORDERED: SODIUM CHLORIDE FLUSH 10ML SYR IVF ONE (19:30)
[2018-02-26 20:34] LABS: BASOPHILS # (AUTO) 0.02 x10^3/uL (0-0.1); BASOPHILS % (AUTO) 0 % (0-1); EOSINOPHILS # (AUTO) 0.02 x10^3/uL (0-0.4); EOSINOPHILS % (AUTO) 0 % (1-7); LYMPHOCYTES # (AUTO) 0.86 x10^3/uL (1-3.4); LYMPHOCYTES % (AUTO) 5 % (22-44); MD NO; MEAN CORPUSCULAR HEMOGLOBIN 29.8 pg (27.0-34.8); MEAN CORPUSCULAR HGB CONC 32.8 g/dL (32.4-35.8); MEAN CORPUSCULAR VOLUME 90.9 fL (80-100); MEAN PLATELET VOLUME 11.7 fL (7.4-10.4); MONOCYTES # (AUTO) 0.91 x10^3/uL (0.2-0.8); MONOCYTES % (AUTO) 6 % (2-9); NEUTROPHILS # (AUTO) 14.84 x10^3/uL (1.8-6.8); NEUTROPHILS % (AUTO) 89 % (42-75); PLATELET COUNT 244 x10^3/uL (130-400); RED BLOOD COUNT 3.52 x10^6/uL (3.82-5.3); RED CELL DISTRIBUTION WIDTH 15.5 % (9.6-15.2)
[2018-02-26 20:44] LABS: ALANINE AMINOTRANSFERASE 32 U/L (12-78); ALBUMIN 2.5 g/dL (3.4-5.0); ANION GAP 12 mmol/L (5-15); CHLORIDE 108 mmol/L (98-107); CREATININE 1.91 mg/dL (0.55-1.02)
[2018-02-26 20:49] LABS: ALKALINE PHOSPHATASE 113 U/L (45-117); BILIRUBIN,TOTAL 0.6 mg/dL (0.2-1.0); TROPONIN I 0.038 ng/mL (0.000-0.045)
[2018-02-26] MEDS ORDERED: AZITHROMYCIN 500 MG in SODIUM CHLORIDE 0.9% 250 ML IV SCH ×2 (21:00→22:00)
[2018-02-26] MEDS ORDERED: CEFTRIAXONE 1,000 MG in SODIUM CHLORIDE 0.9% 50 ML IVPB ONE (21:00)
[2018-02-26 21:07] LABS: CULTURE INDICATED? YES; MICROSCOPIC INDICATED
[2018-02-26] MEDS ORDERED: FUROSEMIDE 40 MG/4 ML ONE (21:26)
[2018-02-26] MEDS ORDERED: CEFTRIAXONE PMX 1GM/50ML 50 ML ONE (21:26)
[2018-02-26] MEDS ORDERED: SODIUM CHLORIDE 0.9% 1,000ML IVBOLUS ONE (21:30)
[2018-02-26] MEDS ORDERED: FUROSEMIDE 40 MG/4 ML IVPush ONE (21:30)
[2018-02-26] MEDS ORDERED: CEFTRIAXONE PMX 1GM/50ML 50 ML IV SCH (22:00)
[2018-02-26] MEDS ORDERED: OXYC-302 PO (22:08)
[2018-02-26] MEDS ORDERED: INSU100C5 SQ-INSULIN (22:08)
[2018-02-26] MEDS ORDERED: INSU100I32 SC (22:08)
[2018-02-26] MEDS ORDERED: DIAZ5TAB4 PO (22:08)
[2018-02-26] MEDS ORDERED: BISACODYL 10 MG SUPP PR PRN (22:30)
[2018-02-26] MEDS ORDERED: POLYETHYLENE GLYCOL 17 GM PACKET PO PRN (22:30)
[2018-02-26] MEDS: SODIUM CHLORIDE FLUSH 10ML SYR IVF SCH (22:30)
[2018-02-26] MEDS ORDERED: SODIUM POLYSTYRENE SULFONATE ORAL SUSP PO ONE (22:30)
[2018-02-26] MEDS ORDERED: SODIUM CHLORIDE 0.9% 1,000 ML IV SCH (22:30)
[2018-02-26] MEDS ORDERED: OMEPRAZOLE 20 MG CAPSULE.DR PO SCH (22:30)
[2018-02-27] MEDS: ATORVASTATIN 40 MG TABLET PO SCH ×2 (01:34→21:07)
[2018-02-27] MEDS: GABAPENTIN 100 MG CAPSULE PO SCH ×4 (01:34→21:06)
[2018-02-27] MEDS: METOPROLOL TARTRATE 25 MG TABLET PO SCH ×3 (01:34→21:06)
[2018-02-27] MEDS: INSULIN GLARGINE 100 UNITS/ML, PEN SQ-INSULIN SCH ×2 (01:35→21:11)
[2018-02-27] MEDS: INSULIN LISPRO 100 UNITS/ML, PEN SQ-INSULIN SCH ×5 (01:35→21:10)
[2018-02-27 01:39] VITALS: BP 124/78
[2018-02-27 05:50] VITALS: BP 108/49
[2018-02-27 05:52] LABS: BASOPHILS # (AUTO) 0.04 x10^3/uL (0-0.1); BASOPHILS % (AUTO) 0 % (0-1); EOSINOPHILS # (AUTO) 0.09 x10^3/uL (0-0.4); EOSINOPHILS % (AUTO) 1 % (1-7); LYMPHOCYTES # (AUTO) 0.88 x10^3/uL (1-3.4); LYMPHOCYTES % (AUTO) 7 % (22-44); MD NO; MEAN CORPUSCULAR HEMOGLOBIN 30.1 pg (27.0-34.8); MEAN CORPUSCULAR VOLUME 91.3 fL (80-100); MEAN PLATELET VOLUME 11.4 fL (7.4-10.4); MONOCYTES # (AUTO) 0.83 x10^3/uL (0.2-0.8); MONOCYTES % (AUTO) 7 % (2-9); NEUTROPHILS # (AUTO) 10.08 x10^3/uL (1.8-6.8); NEUTROPHILS % (AUTO) 85 % (42-75); PLATELET COUNT 199 x10^3/uL (130-400); RED BLOOD COUNT 3.44 x10^6/uL (3.82-5.3); RED CELL DISTRIBUTION WIDTH 15.9 % (9.6-15.2)
[2018-02-27 06:01] LABS: CALCIUM 8.1 mg/dL (8.5-10.1); CHLORIDE 108 mmol/L (98-107)
[2018-02-27 06:06] LABS: ALANINE AMINOTRANSFERASE 29 U/L (12-78); ALBUMIN 2.4 g/dL (3.4-5.0); ALKALINE PHOSPHATASE 105 U/L (45-117); ANION GAP 9 mmol/L (5-15); BILIRUBIN,TOTAL 0.4 mg/dL (0.2-1.0); CREATININE 1.93 mg/dL (0.55-1.02); TOTAL PROTEIN 6.9 g/dL (6.4-8.2)
[2018-02-27] MEDS ORDERED: ALENDRONATE 70 MG TABLET PO SCH (06:30)
[2018-02-27 07:01] VITALS: BP 127/74
[2018-02-27] MEDS ORDERED: SODIUM BICARBONATE 1 MEQ/ML, 50ML VIAL IVPush ONE (08:00)
[2018-02-27] MEDS ORDERED: INSULIN REGULAR 100 UNITS/ML, 3ML VIAL IVPush ONE (08:00)
[2018-02-27] MEDS ORDERED: DEXTROSE 50%, 50ML SYRINGE IVPush ONE (08:00)
[2018-02-27] MEDS ORDERED: CALCIUM GLUCONATE 0.46MEQ/1ML IVPush ONE (08:00)
[2018-02-27] MEDS ORDERED: CALCIUM GLUCONATE 4.6 MEQ in SODIUM CHLORIDE 0.9% 50 ML IV ONE (08:00)
[2018-02-27] MEDS: SODIUM CHLORIDE FLUSH 10ML SYR IVF SCH ×2 (09:00→21:00)
[2018-02-27] MEDS: SENNA/DOCUSATE TABLET PO SCH (10:37)
[2018-02-27] MEDS: CLOPIDOGREL 75 MG TABLET PO SCH (10:37)
[2018-02-27] MEDS: METRONIDAZOLE PMX 500MG/100ML 100 ML IV SCH ×2 (10:43→18:39)
[2018-02-27 12:37] LABS: ANION GAP 10 mmol/L (5-15); CALCIUM 8.2 mg/dL (8.5-10.1); CHLORIDE 110 mmol/L (98-107); CREATININE 1.66 mg/dL (0.55-1.02)
[2018-02-27 12:59] VITALS: BP 80/42
[2018-02-27 13:05] VITALS: BP 112/65
[2018-02-27] MEDS: ACETAMINOPHEN 325 MG TABLET PO PRN (17:22)
[2018-02-27 19:13] VITALS: BP 103/63
[2018-02-27] MEDS ORDERED: AZITHROMYCIN 500 MG in SODIUM CHLORIDE 0.9% 250 ML IV SCH (22:00)
[2018-02-28 00:26] VITALS: BP 108/68
[2018-02-28] MEDS: METRONIDAZOLE PMX 500MG/100ML 100 ML IV SCH ×3 (02:44→18:19)
[2018-02-28 08:28] LABS: BASOPHILS # (AUTO) 0.04 x10^3/uL (0-0.1); BASOPHILS % (AUTO) 0 % (0-1); EOSINOPHILS % (AUTO) 1 % (1-7); LYMPHOCYTES # (AUTO) 0.88 x10^3/uL (1-3.4); LYMPHOCYTES % (AUTO) 9 % (22-44); MD NO; MEAN CORPUSCULAR HEMOGLOBIN 30.6 pg (27.0-34.8); MEAN CORPUSCULAR HGB CONC 33.5 g/dL (32.4-35.8); MEAN CORPUSCULAR VOLUME 91.3 fL (80-100); MEAN PLATELET VOLUME 10.9 fL (7.4-10.4); MONOCYTES # (AUTO) 0.69 x10^3/uL (0.2-0.8); MONOCYTES % (AUTO) 7 % (2-9); NEUTROPHILS # (AUTO) 8.09 x10^3/uL (1.8-6.8); NEUTROPHILS % (AUTO) 83 % (42-75); PLATELET COUNT 211 x10^3/uL (130-400); RED BLOOD COUNT 3.15 x10^6/uL (3.82-5.3); RED CELL DISTRIBUTION WIDTH 15.4 % (9.6-15.2)
[2018-02-28] MEDS: INSULIN LISPRO 100 UNITS/ML, PEN SQ-INSULIN SCH ×4 (08:35→22:11)
[2018-02-28] MEDS: SENNA/DOCUSATE TABLET PO SCH (08:36)
[2018-02-28] MEDS: GABAPENTIN 100 MG CAPSULE PO SCH ×3 (08:36→22:09)
[2018-02-28] MEDS: CLOPIDOGREL 75 MG TABLET PO SCH (08:36)
[2018-02-28] MEDS: METOPROLOL TARTRATE 25 MG TABLET PO SCH ×2 (08:36→22:10)
[2018-02-28] MEDS: SODIUM CHLORIDE FLUSH 10ML SYR IVF SCH ×2 (08:36→21:00)
[2018-02-28 08:39] LABS: ANION GAP 8 mmol/L (5-15); CALCIUM 8.2 mg/dL (8.5-10.1); CHLORIDE 113 mmol/L (98-107)
[2018-02-28 09:47] VITALS: BP 138/79
[2018-02-28 12:16] VITALS: BP 161/77
[2018-02-28] MEDS ORDERED: SODIUM CHLORIDE 0.9% 1,000 ML IV SCH (13:00)
[2018-02-28] MEDS: ONDANSETRON ODT 4 MG PO PRN (18:26)
[2018-02-28 18:45] VITALS: BP 154/79
[2018-02-28] MEDS: ATORVASTATIN 40 MG TABLET PO SCH (22:09)
[2018-02-28] MEDS: INSULIN GLARGINE 100 UNITS/ML, PEN SQ-INSULIN SCH (22:10)
[2018-03-01 01:42] VITALS: BP 100/69
[2018-03-01] MEDS: ACETAMINOPHEN 325 MG TABLET PO PRN ×2 (02:31→21:13)
[2018-03-01] MEDS: METRONIDAZOLE PMX 500MG/100ML 100 ML IV SCH (02:31)
[2018-03-01 05:08] LABS: BASOPHILS # (AUTO) 0.03 x10^3/uL (0-0.1); BASOPHILS % (AUTO) 0 % (0-1); EOSINOPHILS # (AUTO) 0.05 x10^3/uL (0-0.4); EOSINOPHILS % (AUTO) 1 % (1-7); LYMPHOCYTES # (AUTO) 0.76 x10^3/uL (1-3.4); LYMPHOCYTES % (AUTO) 9 % (22-44); MD NO; MEAN CORPUSCULAR HEMOGLOBIN 30.9 pg (27.0-34.8); MEAN CORPUSCULAR HGB CONC 33.9 g/dL (32.4-35.8); MEAN CORPUSCULAR VOLUME 91.3 fL (80-100); MEAN PLATELET VOLUME 10.4 fL (7.4-10.4); MONOCYTES # (AUTO) 0.55 x10^3/uL (0.2-0.8); MONOCYTES % (AUTO) 7 % (2-9); NEUTROPHILS # (AUTO) 7.02 x10^3/uL (1.8-6.8); NEUTROPHILS % (AUTO) 84 % (42-75); PLATELET COUNT 202 x10^3/uL (130-400); RED BLOOD COUNT 3.14 x10^6/uL (3.82-5.3); RED CELL DISTRIBUTION WIDTH 15.4 % (9.6-15.2)
[2018-03-01 05:26] LABS: CHLORIDE 115 mmol/L (98-107)
[2018-03-01 05:35] LABS: ANION GAP 9 mmol/L (5-15); CALCIUM 8.7 mg/dL (8.5-10.1); CREATININE 1.16 mg/dL (0.55-1.02)
[2018-03-01] MEDS: INSULIN LISPRO 100 UNITS/ML, PEN SQ-INSULIN SCH ×4 (07:00→21:52)
[2018-03-01 07:24] VITALS: BP 174/83
[2018-03-01] MEDS: CLOPIDOGREL 75 MG TABLET PO SCH (07:48)
[2018-03-01] MEDS: GABAPENTIN 100 MG CAPSULE PO SCH ×3 (07:48→21:13)
[2018-03-01] MEDS: METOPROLOL TARTRATE 25 MG TABLET PO SCH ×2 (07:48→21:13)
[2018-03-01] MEDS: SODIUM CHLORIDE FLUSH 10ML SYR IVF SCH ×2 (07:49→19:17)
[2018-03-01] MEDS: SENNA/DOCUSATE TABLET PO SCH (07:49)
[2018-03-01] MEDS: AZITHROMYCIN 500 MG TABLET PO SCH (09:47)
[2018-03-01] MEDS: CEFDINIR 300 MG CAPSULE PO SCH ×2 (09:47→21:13)
[2018-03-01] MEDS: metroNIDAZOLE 500 MG TABLET PO SCH ×2 (09:48→16:57)
[2018-03-01 12:42] VITALS: BP 179/83
[2018-03-01] MEDS ORDERED: METR500T PO (14:47)
[2018-03-01] MEDS ORDERED: CEFD300C37 PO (14:47)
[2018-03-01] MEDS ORDERED: AZIT500T5 PO (14:47)
[2018-03-01 20:09] VITALS: BP 188/84
[2018-03-01] MEDS: ATORVASTATIN 40 MG TABLET PO SCH (21:13)
[2018-03-01] MEDS: INSULIN GLARGINE 100 UNITS/ML, PEN SQ-INSULIN SCH (21:14)
[2018-03-01] MEDS: ONDANSETRON ODT 4 MG PO PRN (21:50)
[2018-03-01] MEDS ORDERED: hydrALAzine 20 MG/ML, 1ML IV PRN (22:00)
[2018-03-01 22:24] VITALS: BP 158/71
[2018-03-02 01:29] VITALS: BP 143/80
[2018-03-02] MEDS: metroNIDAZOLE 500 MG TABLET PO SCH ×2 (01:32→09:21)
[2018-03-02] MEDS: INSULIN LISPRO 100 UNITS/ML, PEN SQ-INSULIN SCH ×2 (07:00→11:12)
[2018-03-02 07:39] VITALS: BP 172/83
[2018-03-02] MEDS: SODIUM CHLORIDE FLUSH 10ML SYR IVF SCH (09:00)
[2018-03-02] MEDS: AZITHROMYCIN 500 MG TABLET PO SCH (09:21)
[2018-03-02] MEDS: METOPROLOL TARTRATE 25 MG TABLET PO SCH (09:21)
[2018-03-02] MEDS: CLOPIDOGREL 75 MG TABLET PO SCH (09:21)
[2018-03-02] MEDS: GABAPENTIN 100 MG CAPSULE PO SCH (09:21)
[2018-03-02] MEDS: CEFDINIR 300 MG CAPSULE PO SCH (09:21)
[2018-03-02] MEDS: SENNA/DOCUSATE TABLET PO SCH (09:21)
[2018-03-02] MEDS: ONDANSETRON ODT 4 MG PO PRN (11:09)
[2018-03-02 12:20] VITALS: BP 116/73
[2018-03-02 13:02] VITALS: BP_SYST 155; BP_SYST 185; BP_DIAS 75; BP_DIAS 86
== END 2018-03-02 16:28 | DRG 177 ==
LOC: ED 19:55 → EDIP 21:22 → 4EST 22:34
PROVIDERS: ADMIT Hospitalist; ATTEND Hospitalist
PROC: 0T9B70Z Drainage of Bladder with Drainage Device, Via Natural or Artificial Opening (ICD-10-PCS; principal; 2018-02-26)
DX: J69.0 Pneumonitis due to inhalation of food and vomit (principal); N17.0 Acute kidney failure with tubular necrosis; E43 Unspecified severe protein-calorie malnutrition; E87.2 Acidosis; E87.1 Hypo-osmolality and hyponatremia; I50.42 Chronic combined systolic (congestive) and diastolic (congestive) heart failure; N30.00 Acute cystitis without hematuria; D64.9 Anemia, unspecified; E11.9 Type 2 diabetes mellitus without complications; E78.5 Hyperlipidemia, unspecified; E87.5 Hyperkalemia; E55.9 Vitamin D deficiency, unspecified; M19.90 Unspecified osteoarthritis, unspecified site; D72.829 Elevated white blood cell count, unspecified; I11.0 Hypertensive heart disease with heart failure; I25.10 Atherosclerotic heart disease of native coronary artery without angina pectoris; K21.9 Gastro-esophageal reflux disease without esophagitis; Z82.49 Family history of ischemic heart disease and other diseases of the circulatory system; Z95.5 Presence of coronary angioplasty implant and graft; I25.2 Old myocardial infarction; Z79.4 Long term (current) use of insulin; Z86.711 Personal history of pulmonary embolism; Z98.1 Arthrodesis status; Z90.710 Acquired absence of both cervix and uterus; Z88.1 Allergy status to other antibiotic agents; Z68.33 Body mass index [BMI] 33.0-33.9, adult
CPT/HCPCS: 36415; 70450; 71045; 74230; 80048; 80053; 81001; 82962; 83880; 84484; 85025; 87040; 87070; 87086; 87205; 93005; 96374; 96375; G0378; J0456; J0610; J0696; J1815; J1940; Q0162; J7030; J7050

== ENCOUNTER 2018-06-06 22:42 | Inpatient (IN) | payer MEDICARE ==
[~2018-06-06] VITALS: Ht 165.1 cm; Wt 75.0 kg
[~2018-06-06 22:42] MED LIST changes: -ALEN70TA5 PO; +ALEN70TA6 PO; -AMLO10TA6 PO; +AMLO10TA8 PO; -ASPI-621 PO; +ASPI81TA45 PO; +AZIT500T5 PO; +CEFD300C37 PO; +DIAZ5TAB4 PO; -GEMF600T4 PO; +GEMF600T8 PO; -GLIP-164 PO; +GLIP10TA24 PO; +INSU100C5 SQ-INSULIN; +METR500T PO; +OXYC-302 PO; -ROSU20TA PO; +ROSU20TA2 PO; +SENN-177 PO; -SENN1TAB8 PO
--- NOTE | 2018-06-06 23:17 | NUR ---
MARIE CATH PERFORMED WITH ASSISTANCE OF PAPI VARELA. SAMPLE WALKED TO LAB.
--- NOTE | 2018-06-06 23:24 | NUR ---
Labs drawn, including blood cultures x 2. Straight cath complete and sample walked to lab.
[2018-06-06 23:42] LABS: ALBUMIN 2.5 g/dL (3.4-5.0); ANION GAP 6 mmol/L (5-15); CALCIUM 7.8 mg/dL (8.5-10.1); CHLORIDE 103 mmol/L (98-107); CREATININE 1.48 mg/dL (0.55-1.02)
[2018-06-06 23:45] LABS: TROPONIN I 0.032 ng/mL (0.000-0.045)
[2018-06-06 23:48] LABS: BASOPHILS # (AUTO) 0.03 x10^3/uL (0-0.1); BASOPHILS % (AUTO) 0 % (0-1); EOSINOPHILS # (AUTO) 0.02 x10^3/uL (0-0.4); EOSINOPHILS % (AUTO) 0 % (1-7); LYMPHOCYTES # (AUTO) 0.85 x10^3/uL (1-3.4); LYMPHOCYTES % (AUTO) 8 % (22-44); MD NO; MEAN CORPUSCULAR HEMOGLOBIN 30.8 pg (27.0-34.8); MEAN CORPUSCULAR HGB CONC 33.6 g/dL (32.4-35.8); MEAN CORPUSCULAR VOLUME 91.6 fL (80-100); MEAN PLATELET VOLUME 11.3 fL (7.4-10.4); MONOCYTES # (AUTO) 1.26 x10^3/uL (0.2-0.8); MONOCYTES % (AUTO) 12 % (2-9); NEUTROPHILS # (AUTO) 7.98 x10^3/uL (1.8-6.8); NEUTROPHILS % (AUTO) 79 % (42-75); PLATELET COUNT 213 x10^3/uL (130-400); RED BLOOD COUNT 2.95 x10^6/uL (3.82-5.3); RED CELL DISTRIBUTION WIDTH 16.7 % (9.6-15.2)
[2018-06-06 23:53] LABS: CULTURE INDICATED? YES; MICROSCOPIC INDICATED
[2018-06-07] MEDS ORDERED: POLYETHYLENE GLYCOL 17 GM PACKET PO PRN (00:30)
[2018-06-07] MEDS ORDERED: BISACODYL 10 MG SUPP PR PRN (00:30)
[2018-06-07] MEDS ORDERED: ACETAMINOPHEN 325 MG TABLET PO PRN (00:30)
[2018-06-07 00:55] VITALS: BP 107/63
[2018-06-07 01:11] LABS: HEMOGLOBIN A1C 7.5 % (4.2-6.3)
--- NOTE | 2018-06-07 01:12 | NUR ---
PT TO FLOOR WITH EDT.
[2018-06-07] MEDS: HEPARIN 5,000 UNITS/ML, 1ML SQ SCH ×3 (01:29→18:11)
[2018-06-07] MEDS: SODIUM CHLORIDE 0.9% 1,000 ML IV SCH ×2 (01:29→13:50)
[2018-06-07] MEDS: INSULIN LISPRO 100 UNITS/ML, PEN SQ-INSULIN SCH ×4 (01:30→20:33)
[2018-06-07 05:12] LABS: CHLORIDE 105 mmol/L (98-107)
[2018-06-07 05:23] LABS: ALANINE AMINOTRANSFERASE 15 U/L (12-78); ALBUMIN 2.7 g/dL (3.4-5.0); ALKALINE PHOSPHATASE 87 U/L (45-117); ANION GAP 8 mmol/L (5-15); BILIRUBIN,TOTAL 0.6 mg/dL (0.2-1.0); CALCIUM 8.1 mg/dL (8.5-10.1); CREATININE 1.53 mg/dL (0.55-1.02); TOTAL PROTEIN 7.3 g/dL (6.4-8.2)
[2018-06-07 05:34] LABS: BASOPHILS # (AUTO) 0.01 x10^3/uL (0-0.1); BASOPHILS % (AUTO) 0 % (0-1); EOSINOPHILS % (AUTO) 1 % (1-7); LYMPHOCYTES # (AUTO) 0.94 x10^3/uL (1-3.4); LYMPHOCYTES % (AUTO) 10 % (22-44); MD NO; MEAN CORPUSCULAR HEMOGLOBIN 30.3 pg (27.0-34.8); MEAN CORPUSCULAR HGB CONC 32.7 g/dL (32.4-35.8); MEAN CORPUSCULAR VOLUME 92.8 fL (80-100); MEAN PLATELET VOLUME 11.1 fL (7.4-10.4); MONOCYTES # (AUTO) 1.23 x10^3/uL (0.2-0.8); MONOCYTES % (AUTO) 13 % (2-9); NEUTROPHILS % (AUTO) 76 % (42-75); PLATELET COUNT 197 x10^3/uL (130-400); RED BLOOD COUNT 3.75 x10^6/uL (3.82-5.3); RED CELL DISTRIBUTION WIDTH 16.4 % (9.6-15.2)
[2018-06-07 07:15] VITALS: BP 179/75
[2018-06-07] MEDS ORDERED: SODIUM CHLORIDE 0.9%, 250ML IVBOLUS ONE (08:30)
[2018-06-07] MEDS: LISINOPRIL 20 MG TABLET PO SCH (09:00)
[2018-06-07] MEDS: GABAPENTIN 100 MG CAPSULE PO SCH ×3 (09:00→20:57)
[2018-06-07] MEDS: LINAGLIPTIN 5 MG TAB PO SCH (09:00)
[2018-06-07] MEDS: SENNA/DOCUSATE TABLET PO SCH (09:00)
[2018-06-07] MEDS: METOPROLOL TARTRATE 25 MG TABLET PO SCH ×2 (09:00→20:57)
[2018-06-07] MEDS: OMEPRAZOLE 20 MG CAPSULE.DR PO SCH ×2 (09:00→20:57)
[2018-06-07] MEDS: CLOPIDOGREL 75 MG TABLET PO SCH (09:00)
[2018-06-07] MEDS: ACARBOSE 50 MG TABLET PO SCH ×3 (09:00→20:57)
[2018-06-07] MEDS ORDERED: ENALAPRILAT 1.25 MG/ML, 2ML IV PRN (09:30)
[2018-06-07 14:01] VITALS: BP 175/75
[2018-06-07] MEDS ORDERED: ACETAMINOPHEN 120 MG SUPP PR PRN (14:30)
[2018-06-07 19:33] VITALS: BP 125/83
[2018-06-07] MEDS ORDERED: CEFTRIAXONE PMX 1GM/50ML 50 ML IV SCH (20:00)
[2018-06-07] MEDS: INSULIN DEGLUDEC 28 UNIT HOMEINJ SCH (20:22)
[2018-06-07] MEDS: ATORVASTATIN 40 MG TABLET PO SCH (20:56)
[2018-06-08 00:09] VITALS: BP 149/69
[2018-06-08] MEDS: HEPARIN 5,000 UNITS/ML, 1ML SQ SCH ×3 (00:56→17:12)
[2018-06-08] MEDS: INSULIN LISPRO 100 UNITS/ML, PEN SQ-INSULIN SCH ×4 (01:04→19:59)
[2018-06-08] MEDS: SODIUM CHLORIDE 0.9% 1,000 ML IV SCH ×2 (02:17→16:25)
[2018-06-08] MEDS: ALENDRONATE 70 MG TABLET PO SCH (05:44)
[2018-06-08 07:28] VITALS: BP 143/71
[2018-06-08] MEDS: ACARBOSE 50 MG TABLET PO SCH ×3 (09:00→21:00)
[2018-06-08] MEDS: CLOPIDOGREL 75 MG TABLET PO SCH (09:00)
[2018-06-08] MEDS: OMEPRAZOLE 20 MG CAPSULE.DR PO SCH ×2 (09:00→21:00)
[2018-06-08] MEDS: GABAPENTIN 100 MG CAPSULE PO SCH ×3 (09:00→21:00)
[2018-06-08] MEDS: METOPROLOL TARTRATE 25 MG TABLET PO SCH ×2 (09:00→21:00)
[2018-06-08] MEDS: LISINOPRIL 20 MG TABLET PO SCH (09:00)
[2018-06-08] MEDS: SENNA/DOCUSATE TABLET PO SCH (09:00)
[2018-06-08] MEDS: LINAGLIPTIN 5 MG TAB PO SCH (09:00)
[2018-06-08 09:17] LABS: BASOPHILS # (AUTO) 0.03 x10^3/uL (0-0.1); BASOPHILS % (AUTO) 0 % (0-1); EOSINOPHILS # (AUTO) 0.06 x10^3/uL (0-0.4); EOSINOPHILS % (AUTO) 1 % (1-7); LYMPHOCYTES # (AUTO) 0.45 x10^3/uL (1-3.4); LYMPHOCYTES % (AUTO) 7 % (22-44); MD NO; MEAN CORPUSCULAR HGB CONC 32.6 g/dL (32.4-35.8); MEAN PLATELET VOLUME 10.9 fL (7.4-10.4); MONOCYTES # (AUTO) 0.63 x10^3/uL (0.2-0.8); MONOCYTES % (AUTO) 10 % (2-9); NEUTROPHILS # (AUTO) 5.41 x10^3/uL (1.8-6.8); NEUTROPHILS % (AUTO) 82 % (42-75); PLATELET COUNT 192 x10^3/uL (130-400); RED BLOOD COUNT 2.82 x10^6/uL (3.82-5.3); RED CELL DISTRIBUTION WIDTH 16.5 % (9.6-15.2)
[2018-06-08] MEDS: CEFTAZIDIME 1,000 MG in SODIUM CHLORIDE 0.9% 50 ML IV SCH ×3 (09:20→23:43)
[2018-06-08 09:25] LABS: ANION GAP 6 mmol/L (5-15); CALCIUM 7.6 mg/dL (8.5-10.1); CHLORIDE 107 mmol/L (98-107); CREATININE 0.92 mg/dL (0.55-1.02)
--- NOTE | 2018-06-08 10:58 | NUR ---
REC PUREE ONLY; swallow precaution sheet posted at bedside Addendum: 06/08/18 at [address] Amended: Links added.
[2018-06-08 13:13] VITALS: BP 185/91
[2018-06-08] MEDS: hydrALAzine 20 MG/ML, 1ML IV PRN ×2 (13:42→20:00)
[2018-06-08] MEDS: ONDANSETRON ODT 4 MG PO PRN ×2 (15:38→19:35)
[2018-06-08 16:00] VITALS: BP 165/82
[2018-06-08 19:00] VITALS: BP 185/82
[2018-06-08] MEDS ORDERED: ACETAMINOPHEN 650 MG SUPP ONE (19:54)
[2018-06-08 20:25] VITALS: BP 139/72
[2018-06-08] MEDS: ATORVASTATIN 40 MG TABLET PO SCH (21:00)
[2018-06-08] MEDS: INSULIN DEGLUDEC 28 UNIT HOMEINJ SCH (21:00)
[2018-06-08] MEDS ORDERED: ACETAMINOPHEN 650 MG SUPP PR PRN (22:30)
[2018-06-09 01:28] VITALS: BP 147/80
[2018-06-09] MEDS: ONDANSETRON ODT 4 MG PO PRN ×3 (01:30→20:57)
[2018-06-09] MEDS: INSULIN LISPRO 100 UNITS/ML, PEN SQ-INSULIN SCH ×4 (01:31→20:40)
[2018-06-09] MEDS: HEPARIN 5,000 UNITS/ML, 1ML SQ SCH ×3 (01:31→17:48)
[2018-06-09 05:38] LABS: BASOPHILS # (AUTO) 0.03 x10^3/uL (0-0.1); BASOPHILS % (AUTO) 0 % (0-1); EOSINOPHILS # (AUTO) 0.01 x10^3/uL (0-0.4); EOSINOPHILS % (AUTO) 0 % (1-7); LYMPHOCYTES # (AUTO) 0.65 x10^3/uL (1-3.4); LYMPHOCYTES % (AUTO) 10 % (22-44); MD NO; MEAN CORPUSCULAR HEMOGLOBIN 30.9 pg (27.0-34.8); MEAN CORPUSCULAR HGB CONC 33.7 g/dL (32.4-35.8); MEAN CORPUSCULAR VOLUME 91.7 fL (80-100); MEAN PLATELET VOLUME 10.8 fL (7.4-10.4); MONOCYTES # (AUTO) 0.63 x10^3/uL (0.2-0.8); MONOCYTES % (AUTO) 10 % (2-9); NEUTROPHILS % (AUTO) 80 % (42-75); PLATELET COUNT 216 x10^3/uL (130-400); RED CELL DISTRIBUTION WIDTH 16.1 % (9.6-15.2)
[2018-06-09] MEDS: SODIUM CHLORIDE 0.9% 1,000 ML IV SCH ×2 (05:41→20:45)
[2018-06-09 05:42] LABS: ANION GAP 8 mmol/L (5-15); CALCIUM 8.2 mg/dL (8.5-10.1); CHLORIDE 108 mmol/L (98-107); CREATININE 0.91 mg/dL (0.55-1.02)
[2018-06-09 07:23] VITALS: BP 159/84
[2018-06-09] MEDS: GABAPENTIN 100 MG CAPSULE PO SCH ×3 (07:52→20:48)
[2018-06-09] MEDS: CEFTAZIDIME 1,000 MG in SODIUM CHLORIDE 0.9% 50 ML IV SCH ×2 (07:52→15:41)
[2018-06-09] MEDS: OMEPRAZOLE 20 MG CAPSULE.DR PO SCH ×2 (07:52→20:47)
[2018-06-09] MEDS: ACARBOSE 50 MG TABLET PO SCH ×3 (07:53→20:46)
[2018-06-09] MEDS: LINAGLIPTIN 5 MG TAB PO SCH (07:53)
[2018-06-09] MEDS: CLOPIDOGREL 75 MG TABLET PO SCH (07:53)
[2018-06-09] MEDS: METOPROLOL TARTRATE 25 MG TABLET PO SCH ×2 (07:53→20:48)
[2018-06-09] MEDS: LISINOPRIL 20 MG TABLET PO SCH (07:54)
[2018-06-09] MEDS: SENNA/DOCUSATE TABLET PO SCH (07:54)
[2018-06-09 12:44] VITALS: BP 159/83
[2018-06-09 19:58] VITALS: BP 164/79
[2018-06-09] MEDS: ATORVASTATIN 40 MG TABLET PO SCH (20:48)
[2018-06-09] MEDS: INSULIN DEGLUDEC 28 UNIT HOMEINJ SCH (21:00)
[2018-06-10] MEDS: CEFTAZIDIME 1,000 MG in SODIUM CHLORIDE 0.9% 50 ML IV SCH ×4 (00:05→23:17)
[2018-06-10] MEDS: INSULIN LISPRO 100 UNITS/ML, PEN SQ-INSULIN SCH ×4 (01:50→20:11)
[2018-06-10] MEDS: HEPARIN 5,000 UNITS/ML, 1ML SQ SCH ×3 (01:50→17:36)
[2018-06-10 02:08] VITALS: BP 156/75
[2018-06-10 05:27] LABS: BASOPHILS # (AUTO) 0.02 x10^3/uL (0-0.1); BASOPHILS % (AUTO) 0 % (0-1); EOSINOPHILS # (AUTO) 0.09 x10^3/uL (0-0.4); EOSINOPHILS % (AUTO) 2 % (1-7); LYMPHOCYTES # (AUTO) 0.69 x10^3/uL (1-3.4); LYMPHOCYTES % (AUTO) 12 % (22-44); MD NO; MEAN CORPUSCULAR HEMOGLOBIN 29.4 pg (27.0-34.8); MEAN CORPUSCULAR HGB CONC 32.1 g/dL (32.4-35.8); MEAN CORPUSCULAR VOLUME 91.7 fL (80-100); MEAN PLATELET VOLUME 10.9 fL (7.4-10.4); MONOCYTES # (AUTO) 0.54 x10^3/uL (0.2-0.8); MONOCYTES % (AUTO) 10 % (2-9); NEUTROPHILS # (AUTO) 4.38 x10^3/uL (1.8-6.8); NEUTROPHILS % (AUTO) 77 % (42-75); PLATELET COUNT 229 x10^3/uL (130-400); RED BLOOD COUNT 3.04 x10^6/uL (3.82-5.3); RED CELL DISTRIBUTION WIDTH 16.1 % (9.6-15.2)
[2018-06-10 05:44] LABS: CHLORIDE 112 mmol/L (98-107)
[2018-06-10 05:54] LABS: ANION GAP 8 mmol/L (5-15); CALCIUM 8.2 mg/dL (8.5-10.1); CREATININE 0.79 mg/dL (0.55-1.02)
[2018-06-10] MEDS: ACARBOSE 50 MG TABLET PO SCH ×3 (07:29→19:56)
[2018-06-10] MEDS: LISINOPRIL 20 MG TABLET PO SCH (07:29)
[2018-06-10] MEDS: LINAGLIPTIN 5 MG TAB PO SCH (07:29)
[2018-06-10] MEDS: OMEPRAZOLE 20 MG CAPSULE.DR PO SCH ×2 (07:29→19:56)
[2018-06-10] MEDS: GABAPENTIN 100 MG CAPSULE PO SCH ×3 (07:29→19:56)
[2018-06-10] MEDS: METOPROLOL TARTRATE 25 MG TABLET PO SCH ×2 (07:29→19:56)
[2018-06-10] MEDS: SENNA/DOCUSATE TABLET PO SCH (07:29)
[2018-06-10] MEDS: CLOPIDOGREL 75 MG TABLET PO SCH (07:29)
[2018-06-10 07:53] VITALS: BP 162/76
[2018-06-10] MEDS: SODIUM CHLORIDE 0.9% 1,000 ML IV SCH (10:49)
[2018-06-10 12:19] VITALS: BP 164/74
--- NOTE | 2018-06-10 14:15 | NUR ---
OT put green sheet for pt to be OOB to chair for meals. Addendum: 06/10/18 at 1729 by ISH RAMOS OT Amended: Links added.
[2018-06-10 19:07] VITALS: BP 159/79
[2018-06-10] MEDS: INSULIN DEGLUDEC 28 UNIT HOMEINJ SCH (19:46)
[2018-06-10] MEDS: ATORVASTATIN 40 MG TABLET PO SCH (19:56)
[2018-06-11 01:00] VITALS: BP 154/77
[2018-06-11] MEDS: SODIUM CHLORIDE 0.9% 1,000 ML IV SCH (01:30)
[2018-06-11] MEDS: HEPARIN 5,000 UNITS/ML, 1ML SQ SCH ×3 (01:40→17:58)
[2018-06-11] MEDS: INSULIN LISPRO 100 UNITS/ML, PEN SQ-INSULIN SCH ×4 (01:43→20:00)
[2018-06-11 07:03] VITALS: BP 169/88
[2018-06-11] MEDS: CEFTAZIDIME 1,000 MG in SODIUM CHLORIDE 0.9% 50 ML IV SCH ×3 (07:10→23:34)
[2018-06-11] MEDS: SENNA/DOCUSATE TABLET PO SCH (09:00)
[2018-06-11] MEDS: LISINOPRIL 20 MG TABLET PO SCH (09:26)
[2018-06-11] MEDS: GABAPENTIN 100 MG CAPSULE PO SCH ×3 (09:26→19:59)
[2018-06-11] MEDS: OMEPRAZOLE 20 MG CAPSULE.DR PO SCH ×2 (09:26→19:59)
[2018-06-11] MEDS: LINAGLIPTIN 5 MG TAB PO SCH (09:27)
[2018-06-11] MEDS: CLOPIDOGREL 75 MG TABLET PO SCH (09:27)
[2018-06-11] MEDS: ACARBOSE 50 MG TABLET PO SCH ×3 (09:27→19:59)
[2018-06-11] MEDS: METOPROLOL TARTRATE 25 MG TABLET PO SCH ×2 (09:27→20:02)
[2018-06-11 12:38] VITALS: BP 172/90
[2018-06-11] MEDS: ATORVASTATIN 40 MG TABLET PO SCH (19:59)
[2018-06-11] MEDS: INSULIN DEGLUDEC 28 UNIT HOMEINJ SCH (20:00)
[2018-06-11 20:53] VITALS: BP 157/78
[2018-06-12] MEDS: INSULIN LISPRO 100 UNITS/ML, PEN SQ-INSULIN SCH ×4 (01:46→20:09)
[2018-06-12] MEDS: HEPARIN 5,000 UNITS/ML, 1ML SQ SCH ×3 (01:47→17:10)
[2018-06-12 01:56] VITALS: BP 157/76
[2018-06-12] MEDS: CEFTAZIDIME 1,000 MG in SODIUM CHLORIDE 0.9% 50 ML IV SCH (07:21)
[2018-06-12] MEDS: ACARBOSE 50 MG TABLET PO SCH ×3 (07:24→20:11)
[2018-06-12] MEDS: GABAPENTIN 100 MG CAPSULE PO SCH ×3 (07:24→20:10)
[2018-06-12] MEDS: LINAGLIPTIN 5 MG TAB PO SCH (07:24)
[2018-06-12] MEDS: OMEPRAZOLE 20 MG CAPSULE.DR PO SCH ×2 (07:24→20:09)
[2018-06-12] MEDS: METOPROLOL TARTRATE 25 MG TABLET PO SCH ×2 (07:25→20:10)
[2018-06-12] MEDS: LISINOPRIL 20 MG TABLET PO SCH (07:25)
[2018-06-12] MEDS: SENNA/DOCUSATE TABLET PO SCH (07:25)
[2018-06-12] MEDS: CLOPIDOGREL 75 MG TABLET PO SCH (07:25)
[2018-06-12 07:27] VITALS: BP 169/77
[2018-06-12] MEDS: CEFEPIME 2 GM in DEXTROSE 5% 100 ML IV SCH (13:23)
[2018-06-12 14:50] VITALS: BP 145/82
[2018-06-12] MEDS ORDERED: CEFEPIME 2 GM in DEXTROSE 5% 100 ML IV SCH (16:00)
[2018-06-12 18:23] VITALS: BP 163/80
[2018-06-12] MEDS: ATORVASTATIN 40 MG TABLET PO SCH (20:09)
[2018-06-12] MEDS: INSULIN DEGLUDEC 28 UNIT HOMEINJ SCH (20:11)
[2018-06-13 00:23] VITALS: BP 162/79
[2018-06-13] MEDS: ACETAMINOPHEN 325 MG TABLET PO PRN ×2 (00:29→20:42)
[2018-06-13] MEDS: HEPARIN 5,000 UNITS/ML, 1ML SQ SCH ×3 (02:24→17:34)
[2018-06-13] MEDS: INSULIN LISPRO 100 UNITS/ML, PEN SQ-INSULIN SCH ×4 (02:25→20:23)
[2018-06-13 07:05] VITALS: BP 176/82
[2018-06-13] MEDS: ACARBOSE 50 MG TABLET PO SCH ×3 (08:41→20:24)
[2018-06-13] MEDS: AMLODIPINE 5 MG TABLET PO SCH (08:41)
[2018-06-13] MEDS: OMEPRAZOLE 20 MG CAPSULE.DR PO SCH ×2 (08:42→20:23)
[2018-06-13] MEDS: LISINOPRIL 20 MG TABLET PO SCH (08:42)
[2018-06-13] MEDS: LINAGLIPTIN 5 MG TAB PO SCH (08:42)
[2018-06-13] MEDS: GABAPENTIN 100 MG CAPSULE PO SCH ×3 (08:42→20:24)
[2018-06-13] MEDS: SENNA/DOCUSATE TABLET PO SCH (08:42)
[2018-06-13] MEDS: METOPROLOL TARTRATE 25 MG TABLET PO SCH ×2 (08:42→20:24)
[2018-06-13] MEDS: CLOPIDOGREL 75 MG TABLET PO SCH (08:42)
[2018-06-13 13:31] VITALS: BP 134/73
[2018-06-13] MEDS: CEFEPIME 2 GM in DEXTROSE 5% 100 ML IV SCH (14:52)
[2018-06-13 19:29] VITALS: BP 151/72
[2018-06-13] MEDS: ATORVASTATIN 40 MG TABLET PO SCH (20:23)
[2018-06-13] MEDS: INSULIN DEGLUDEC 28 UNIT HOMEINJ SCH (20:28)
[2018-06-14 00:45] VITALS: BP 157/79
[2018-06-14] MEDS: HEPARIN 5,000 UNITS/ML, 1ML SQ SCH ×3 (02:20→16:46)
[2018-06-14] MEDS: INSULIN LISPRO 100 UNITS/ML, PEN SQ-INSULIN SCH ×4 (02:21→20:59)
[2018-06-14 08:00] VITALS: BP 173/86
[2018-06-14] MEDS: ACETAMINOPHEN 325 MG TABLET PO PRN (09:45)
[2018-06-14] MEDS: SENNA/DOCUSATE TABLET PO SCH (09:45)
[2018-06-14] MEDS: LISINOPRIL 20 MG TABLET PO SCH (09:45)
[2018-06-14] MEDS: ACARBOSE 50 MG TABLET PO SCH ×3 (09:45→20:58)
[2018-06-14] MEDS: GABAPENTIN 100 MG CAPSULE PO SCH ×3 (09:46→20:58)
[2018-06-14] MEDS: METOPROLOL TARTRATE 25 MG TABLET PO SCH ×2 (09:47→20:58)
[2018-06-14] MEDS: CLOPIDOGREL 75 MG TABLET PO SCH (09:47)
[2018-06-14] MEDS: AMLODIPINE 5 MG TABLET PO SCH (09:48)
[2018-06-14] MEDS: OMEPRAZOLE 20 MG CAPSULE.DR PO SCH ×2 (09:54→20:58)
[2018-06-14] MEDS: LINAGLIPTIN 5 MG TAB PO SCH (09:54)
[2018-06-14 14:00] VITALS: BP 147/74
[2018-06-14] MEDS: CEFEPIME 2 GM in DEXTROSE 5% 100 ML IV SCH (15:07)
[2018-06-14 18:54] VITALS: BP 136/73
[2018-06-14] MEDS: INSULIN DEGLUDEC 28 UNIT HOMEINJ SCH (20:47)
[2018-06-14] MEDS: ATORVASTATIN 40 MG TABLET PO SCH (20:58)
[2018-06-15 01:12] VITALS: BP 157/74
[2018-06-15] MEDS: INSULIN LISPRO 100 UNITS/ML, PEN SQ-INSULIN SCH ×4 (01:52→21:07)
[2018-06-15 05:43] LABS: BASOPHILS # (AUTO) 0.02 x10^3/uL (0-0.1); BASOPHILS % (AUTO) 0 % (0-1); EOSINOPHILS # (AUTO) 0.28 x10^3/uL (0-0.4); EOSINOPHILS % (AUTO) 5 % (1-7); LYMPHOCYTES # (AUTO) 0.83 x10^3/uL (1-3.4); LYMPHOCYTES % (AUTO) 14 % (22-44); MD NO; MEAN CORPUSCULAR HGB CONC 33.7 g/dL (32.4-35.8); MEAN CORPUSCULAR VOLUME 92.2 fL (80-100); MEAN PLATELET VOLUME 10.5 fL (7.4-10.4); MONOCYTES # (AUTO) 0.48 x10^3/uL (0.2-0.8); MONOCYTES % (AUTO) 8 % (2-9); NEUTROPHILS # (AUTO) 4.19 x10^3/uL (1.8-6.8); NEUTROPHILS % (AUTO) 72 % (42-75); PLATELET COUNT 208 x10^3/uL (130-400); RED BLOOD COUNT 2.81 x10^6/uL (3.82-5.3); RED CELL DISTRIBUTION WIDTH 16.1 % (9.6-15.2)
[2018-06-15 05:54] LABS: CALCIUM 8.6 mg/dL (8.5-10.1); CHLORIDE 111 mmol/L (98-107)
[2018-06-15 05:59] LABS: ALANINE AMINOTRANSFERASE 9 U/L (12-78); ALBUMIN 2.4 g/dL (3.4-5.0); ALKALINE PHOSPHATASE 70 U/L (45-117); ANION GAP 6 mmol/L (5-15); BILIRUBIN,TOTAL 0.9 mg/dL (0.2-1.0); CREATININE 0.83 mg/dL (0.55-1.02)
[2018-06-15] MEDS: ALENDRONATE 70 MG TABLET PO SCH (06:36)
[2018-06-15] MEDS: HEPARIN 5,000 UNITS/ML, 1ML SQ SCH ×3 (06:36→20:45)
[2018-06-15 09:55] VITALS: BP 164/74
[2018-06-15] MEDS: LISINOPRIL 20 MG TABLET PO SCH (11:31)
[2018-06-15] MEDS: GABAPENTIN 100 MG CAPSULE PO SCH ×3 (11:32→20:45)
[2018-06-15] MEDS: CLOPIDOGREL 75 MG TABLET PO SCH (11:32)
[2018-06-15] MEDS: OMEPRAZOLE 20 MG CAPSULE.DR PO SCH ×2 (11:32→20:45)
[2018-06-15] MEDS: AMLODIPINE 5 MG TABLET PO SCH (11:33)
[2018-06-15] MEDS: ACARBOSE 50 MG TABLET PO SCH ×3 (11:33→20:48)
[2018-06-15] MEDS: SENNA/DOCUSATE TABLET PO SCH (11:37)
[2018-06-15] MEDS: CEFEPIME 2 GM in DEXTROSE 5% 100 ML IV SCH ×2 (11:37→22:49)
[2018-06-15] MEDS: LINAGLIPTIN 5 MG TAB PO SCH (11:37)
[2018-06-15] MEDS: METOPROLOL TARTRATE 25 MG TABLET PO SCH ×2 (11:37→20:45)
[2018-06-15] MEDS: ACETAMINOPHEN 325 MG TABLET PO PRN ×2 (12:29→22:49)
[2018-06-15 13:15] VITALS: BP 136/74
[2018-06-15] MEDS ORDERED: POTASSIUM CHLORIDE 20 MEQ TAB.ER.PRT PO ONE (15:30)
[2018-06-15 19:20] VITALS: BP 147/71
[2018-06-15] MEDS: ATORVASTATIN 40 MG TABLET PO SCH (20:45)
[2018-06-15] MEDS: INSULIN DEGLUDEC 30 UNIT HOMEINJ SCH (21:00)
[2018-06-15] MEDS: ONDANSETRON ODT 4 MG PO PRN (21:07)
[2018-06-16 00:30] VITALS: BP 154/73
[2018-06-16] MEDS: ONDANSETRON ODT 4 MG PO PRN ×2 (05:13→09:27)
[2018-06-16 06:21] LABS: ANION GAP 8 mmol/L (5-15); CALCIUM 9.2 mg/dL (8.5-10.1); CHLORIDE 111 mmol/L (98-107); CREATININE 0.95 mg/dL (0.55-1.02)
[2018-06-16] MEDS: HEPARIN 5,000 UNITS/ML, 1ML SQ SCH ×2 (06:21→18:03)
[2018-06-16 06:22] LABS: MEAN CORPUSCULAR HEMOGLOBIN 30.3 pg (27.0-34.8); MEAN CORPUSCULAR HGB CONC 32.7 g/dL (32.4-35.8); MEAN CORPUSCULAR VOLUME 92.5 fL (80-100); RED BLOOD COUNT 3.39 x10^6/uL (3.82-5.3)
[2018-06-16 06:56] LABS: BASOPHILS # (AUTO) 0.06 x10^3/uL (0-0.1); BASOPHILS % (AUTO) 1 % (0-1); EOSINOPHILS % (AUTO) 2 % (1-7); LYMPHOCYTES # (AUTO) 0.93 x10^3/uL (1-3.4); LYMPHOCYTES % (AUTO) 16 % (22-44); MD SCAN; MEAN PLATELET VOLUME 11.2 fL (7.4-10.4); MONOCYTES # (AUTO) 0.51 x10^3/uL (0.2-0.8); MONOCYTES % (AUTO) 8 % (2-9); NEUTROPHILS # (AUTO) 4.44 x10^3/uL (1.8-6.8); NEUTROPHILS % (AUTO) 74 % (42-75); PLATELET COUNT 262 x10^3/uL (130-400)
[2018-06-16 07:18] VITALS: BP 188/79
[2018-06-16] MEDS: AMLODIPINE 5 MG TABLET PO SCH (09:14)
[2018-06-16] MEDS: SENNA/DOCUSATE TABLET PO SCH (09:14)
[2018-06-16] MEDS: METOPROLOL TARTRATE 25 MG TABLET PO SCH ×2 (09:14→21:13)
[2018-06-16] MEDS: CLOPIDOGREL 75 MG TABLET PO SCH (09:15)
[2018-06-16] MEDS: LISINOPRIL 20 MG TABLET PO SCH (09:16)
[2018-06-16] MEDS: ACARBOSE 50 MG TABLET PO SCH ×3 (09:17→21:13)
[2018-06-16] MEDS: LINAGLIPTIN 5 MG TAB PO SCH (09:17)
[2018-06-16] MEDS: GABAPENTIN 100 MG CAPSULE PO SCH ×3 (09:18→21:13)
[2018-06-16] MEDS: OMEPRAZOLE 20 MG CAPSULE.DR PO SCH ×2 (09:18→21:13)
[2018-06-16] MEDS: INSULIN LISPRO 100 UNITS/ML, PEN SQ-INSULIN SCH ×4 (09:19→21:12)
[2018-06-16] MEDS: CEFEPIME 2 GM in DEXTROSE 5% 100 ML IV SCH ×2 (11:43→23:33)
[2018-06-16] MEDS: SODIUM CHLORIDE 0.9% 1,000 ML IV SCH ×2 (11:43→23:33)
[2018-06-16 12:42] VITALS: BP 167/76
--- NOTE | 2018-06-16 17:30 | NUR ---
OT intiated green sheet last week for pt to get up to chair for meals with nursing Addendum: 06/16/18 at 1730 by Viry Hancock PT Amended: Links added.
[2018-06-16 19:16] VITALS: BP 150/73
[2018-06-16] MEDS: INSULIN DEGLUDEC 30 UNIT HOMEINJ SCH (21:00)
[2018-06-16] MEDS: ATORVASTATIN 40 MG TABLET PO SCH (21:14)
[2018-06-17] MEDS: HEPARIN 5,000 UNITS/ML, 1ML SQ SCH ×3 (02:49→17:07)
[2018-06-17 02:56] VITALS: BP 154/77
[2018-06-17 07:24] VITALS: BP 172/82
[2018-06-17] MEDS: SENNA/DOCUSATE TABLET PO SCH (07:50)
[2018-06-17] MEDS: OMEPRAZOLE 20 MG CAPSULE.DR PO SCH ×2 (07:50→21:22)
[2018-06-17] MEDS: AMLODIPINE 5 MG TABLET PO SCH (07:50)
[2018-06-17] MEDS: LISINOPRIL 20 MG TABLET PO SCH (07:50)
[2018-06-17] MEDS: GABAPENTIN 100 MG CAPSULE PO SCH ×3 (07:50→21:22)
[2018-06-17] MEDS: METOPROLOL TARTRATE 25 MG TABLET PO SCH ×2 (07:50→21:20)
[2018-06-17] MEDS: ACARBOSE 50 MG TABLET PO SCH ×3 (07:50→21:22)
[2018-06-17] MEDS: CLOPIDOGREL 75 MG TABLET PO SCH (07:50)
[2018-06-17] MEDS: LINAGLIPTIN 5 MG TAB PO SCH (07:51)
[2018-06-17] MEDS: INSULIN LISPRO 100 UNITS/ML, PEN SQ-INSULIN SCH ×4 (08:02→21:24)
[2018-06-17] MEDS: CEFEPIME 2 GM in DEXTROSE 5% 100 ML IV SCH ×2 (11:11→22:01)
[2018-06-17 12:29] VITALS: BP 150/72
[2018-06-17] MEDS: SODIUM CHLORIDE 0.9% 1,000 ML IV SCH (14:10)
[2018-06-17 18:57] VITALS: BP 162/83
[2018-06-17] MEDS: INSULIN DEGLUDEC 30 UNIT HOMEINJ SCH (21:00)
[2018-06-17] MEDS: ATORVASTATIN 40 MG TABLET PO SCH (21:22)
[2018-06-18 01:38] VITALS: BP 162/77
[2018-06-18] MEDS: HEPARIN 5,000 UNITS/ML, 1ML SQ SCH ×3 (02:31→16:59)
[2018-06-18] MEDS: SODIUM CHLORIDE 0.9% 1,000 ML IV SCH (02:31)
[2018-06-18 07:03] VITALS: BP 174/82
[2018-06-18] MEDS: GABAPENTIN 100 MG CAPSULE PO SCH ×3 (08:08→21:01)
[2018-06-18] MEDS: AMLODIPINE 10 MG TAB PO SCH (08:08)
[2018-06-18] MEDS: CLOPIDOGREL 75 MG TABLET PO SCH (08:08)
[2018-06-18] MEDS: INSULIN LISPRO 100 UNITS/ML, PEN SQ-INSULIN SCH ×4 (08:08→20:59)
[2018-06-18] MEDS: LISINOPRIL 20 MG TABLET PO SCH (08:08)
[2018-06-18] MEDS: ACARBOSE 50 MG TABLET PO SCH ×3 (08:13→21:00)
[2018-06-18] MEDS: OMEPRAZOLE 20 MG CAPSULE.DR PO SCH ×2 (08:13→21:01)
[2018-06-18] MEDS: METOPROLOL TARTRATE 25 MG TABLET PO SCH ×2 (08:13→21:01)
[2018-06-18] MEDS: LINAGLIPTIN 5 MG TAB PO SCH (08:13)
[2018-06-18] MEDS: ONDANSETRON ODT 4 MG PO PRN (08:13)
[2018-06-18] MEDS: SENNA/DOCUSATE TABLET PO SCH (08:14)
[2018-06-18] MEDS: CEFEPIME 2 GM in DEXTROSE 5% 100 ML IV SCH ×2 (11:50→23:08)
[2018-06-18 13:01] VITALS: BP 175/81
[2018-06-18 18:51] VITALS: BP 145/74
[2018-06-18] MEDS: INSULIN DEGLUDEC 32 UNIT HOMEINJ SCH (21:00)
[2018-06-18] MEDS: ATORVASTATIN 40 MG TABLET PO SCH (21:01)
[2018-06-19 01:34] VITALS: BP 159/71
[2018-06-19] MEDS: HEPARIN 5,000 UNITS/ML, 1ML SQ SCH ×3 (02:24→18:00)
[2018-06-19 06:55] VITALS: BP 145/75
[2018-06-19] MEDS: LINAGLIPTIN 5 MG TAB PO SCH (09:00)
[2018-06-19] MEDS: ACARBOSE 50 MG TABLET PO SCH ×3 (09:00→20:17)
[2018-06-19] MEDS: METOPROLOL TARTRATE 25 MG TABLET PO SCH (09:26)
[2018-06-19] MEDS: AMLODIPINE 10 MG TAB PO SCH (09:26)
[2018-06-19] MEDS: SENNA/DOCUSATE TABLET PO SCH (09:26)
[2018-06-19] MEDS: GABAPENTIN 100 MG CAPSULE PO SCH ×3 (09:26→20:17)
[2018-06-19] MEDS: OMEPRAZOLE 20 MG CAPSULE.DR PO SCH ×2 (09:27→20:17)
[2018-06-19] MEDS: INSULIN LISPRO 100 UNITS/ML, PEN SQ-INSULIN SCH ×4 (09:27→20:19)
[2018-06-19] MEDS: LISINOPRIL 20 MG TABLET PO SCH (09:27)
[2018-06-19] MEDS: CLOPIDOGREL 75 MG TABLET PO SCH (09:27)
[2018-06-19 12:24] VITALS: BP 175/90
[2018-06-19] MEDS: CEFEPIME 2 GM in DEXTROSE 5% 100 ML IV SCH ×2 (12:35→22:59)
[2018-06-19] MEDS: PROPRANOLOL 40 MG TABLET PO SCH (18:45)
[2018-06-19 20:07] VITALS: BP 159/77
[2018-06-19] MEDS: INSULIN DEGLUDEC 32 UNIT HOMEINJ SCH (20:17)
[2018-06-19] MEDS: ATORVASTATIN 40 MG TABLET PO SCH (20:17)
[2018-06-20] MEDS: HEPARIN 5,000 UNITS/ML, 1ML SQ SCH ×3 (01:43→18:00)
[2018-06-20 02:34] VITALS: BP 196/115
[2018-06-20 02:58] VITALS: BP_SYST 158; BP_SYST 159; BP_SYST 168; BP_DIAS 79; BP_DIAS 80
[2018-06-20] MEDS: PROPRANOLOL 40 MG TABLET PO SCH ×2 (05:37→17:17)
[2018-06-20 05:54] VITALS: BP 184/81
[2018-06-20] MEDS: GUAIFENESIN/DM 100-10MG, 5ML UDC PO PRN (06:19)
[2018-06-20] MEDS: INSULIN LISPRO 100 UNITS/ML, PEN SQ-INSULIN SCH ×4 (07:00→20:01)
[2018-06-20 07:10] VITALS: BP 186/100
[2018-06-20] MEDS: LINAGLIPTIN 5 MG TAB PO SCH (09:00)
[2018-06-20] MEDS: AMLODIPINE 10 MG TAB PO SCH (09:00)
[2018-06-20] MEDS: ACARBOSE 50 MG TABLET PO SCH ×3 (09:00→19:51)
[2018-06-20] MEDS: OMEPRAZOLE 20 MG CAPSULE.DR PO SCH ×2 (09:00→19:51)
[2018-06-20] MEDS: GABAPENTIN 100 MG CAPSULE PO SCH ×3 (09:00→19:50)
[2018-06-20] MEDS: LISINOPRIL 20 MG TABLET PO SCH (09:00)
[2018-06-20] MEDS: CLOPIDOGREL 75 MG TABLET PO SCH (09:00)
[2018-06-20] MEDS: SENNA/DOCUSATE TABLET PO SCH (09:00)
[2018-06-20] MEDS: SODIUM CHLORIDE 0.9% 1,000 ML IV SCH ×2 (12:00→23:08)
[2018-06-20 12:42] LABS: ALANINE AMINOTRANSFERASE 10 U/L (12-78); ALBUMIN 3.3 g/dL (3.4-5.0); ANION GAP 9 mmol/L (5-15); CALCIUM 9.1 mg/dL (8.5-10.1); CHLORIDE 109 mmol/L (98-107); CREATININE 1.03 mg/dL (0.55-1.02)
[2018-06-20 12:45] LABS: ALKALINE PHOSPHATASE 99 U/L (45-117); BILIRUBIN,TOTAL 0.9 mg/dL (0.2-1.0); TOTAL PROTEIN 8.2 g/dL (6.4-8.2)
[2018-06-20 14:00] VITALS: BP 196/115
[2018-06-20] MEDS ORDERED: POTASSIUM CHLORIDE 20 MEQ TAB.ER.PRT PO ONE (14:30)
[2018-06-20 19:00] VITALS: BP 156/83
[2018-06-20] MEDS: ATORVASTATIN 40 MG TABLET PO SCH (19:50)
[2018-06-20] MEDS: INSULIN DEGLUDEC 32 UNIT HOMEINJ SCH (19:51)
[2018-06-20] MEDS: CEFEPIME 2 GM in DEXTROSE 5% 100 ML IV SCH (23:08)
[2018-06-21 01:45] VITALS: BP 150/98
[2018-06-21] MEDS: HEPARIN 5,000 UNITS/ML, 1ML SQ SCH ×3 (02:00→21:27)
[2018-06-21 05:19] LABS: ANION GAP 11 mmol/L (5-15); CALCIUM 8.9 mg/dL (8.5-10.1); CHLORIDE 113 mmol/L (98-107); CREATININE 0.95 mg/dL (0.55-1.02)
[2018-06-21 05:24] LABS: BASOPHILS # (AUTO) 0.02 x10^3/uL (0-0.1); BASOPHILS % (AUTO) 0 % (0-1); EOSINOPHILS # (AUTO) 0.13 x10^3/uL (0-0.4); EOSINOPHILS % (AUTO) 2 % (1-7); LYMPHOCYTES # (AUTO) 0.75 x10^3/uL (1-3.4); LYMPHOCYTES % (AUTO) 9 % (22-44); MD NO; MEAN CORPUSCULAR HEMOGLOBIN 30.6 pg (27.0-34.8); MEAN CORPUSCULAR VOLUME 92.8 fL (80-100); MONOCYTES % (AUTO) 5 % (2-9); NEUTROPHILS # (AUTO) 6.92 x10^3/uL (1.8-6.8); NEUTROPHILS % (AUTO) 84 % (42-75); PLATELET COUNT 244 x10^3/uL (130-400); RED CELL DISTRIBUTION WIDTH 16.9 % (9.6-15.2)
[2018-06-21] MEDS: PROPRANOLOL 40 MG TABLET PO SCH ×2 (05:38→17:01)
[2018-06-21] MEDS: INSULIN LISPRO 100 UNITS/ML, PEN SQ-INSULIN SCH ×4 (08:14→21:00)
[2018-06-21] MEDS: CLOPIDOGREL 75 MG TABLET PO SCH (09:00)
[2018-06-21] MEDS: LISINOPRIL 20 MG TABLET PO SCH (09:00)
[2018-06-21] MEDS: LINAGLIPTIN 5 MG TAB PO SCH (09:00)
[2018-06-21] MEDS: OMEPRAZOLE 20 MG CAPSULE.DR PO SCH ×2 (09:00→21:00)
[2018-06-21] MEDS: GABAPENTIN 100 MG CAPSULE PO SCH ×3 (09:00→21:00)
[2018-06-21] MEDS: AMLODIPINE 10 MG TAB PO SCH (09:00)
[2018-06-21] MEDS: ACARBOSE 50 MG TABLET PO SCH ×3 (09:00→21:00)
[2018-06-21] MEDS: SENNA/DOCUSATE TABLET PO SCH (09:00)
[2018-06-21] MEDS ORDERED: POTASSIUM CHLORIDE 40 MEQ in SODIUM CHLORIDE 0.9% 500 ML IV ONE (09:30)
[2018-06-21 11:28] VITALS: BP 166/78
[2018-06-21] MEDS: NS + 20MEQ KCL 1,000 ML IV SCH (11:29)
[2018-06-21 12:56] VITALS: BP 179/84
[2018-06-21 13:25] VITALS: BP 170/69
[2018-06-21] MEDS ORDERED: POTASSIUM CHLORIDE 20 MEQ TAB.ER.PRT PO SCH (17:00)
[2018-06-21 18:46] VITALS: BP 174/91
[2018-06-21] MEDS: ATORVASTATIN 40 MG TABLET PO SCH (21:00)
[2018-06-21] MEDS: INSULIN DEGLUDEC 32 UNIT HOMEINJ SCH (21:00)
[2018-06-21] MEDS: CEFEPIME 2 GM in DEXTROSE 5% 100 ML IV SCH (23:41)
[2018-06-22 00:51] VITALS: BP 164/88
[2018-06-22] MEDS: NS + 20MEQ KCL 1,000 ML IV SCH (05:06)
[2018-06-22] MEDS: HEPARIN 5,000 UNITS/ML, 1ML SQ SCH ×3 (05:06→22:18)
[2018-06-22] MEDS: ALENDRONATE 70 MG TABLET PO SCH (05:33)
[2018-06-22] MEDS: PROPRANOLOL 40 MG TABLET PO SCH ×2 (05:33→22:26)
[2018-06-22 05:54] LABS: BASOPHILS # (AUTO) 0.02 x10^3/uL (0-0.1); BASOPHILS % (AUTO) 0 % (0-1); EOSINOPHILS % (AUTO) 0 % (1-7); LYMPHOCYTES # (AUTO) 0.73 x10^3/uL (1-3.4); LYMPHOCYTES % (AUTO) 8 % (22-44); MD NO; MEAN CORPUSCULAR HEMOGLOBIN 30.8 pg (27.0-34.8); MEAN CORPUSCULAR HGB CONC 32.9 g/dL (32.4-35.8); MEAN CORPUSCULAR VOLUME 93.4 fL (80-100); MEAN PLATELET VOLUME 12.3 fL (7.4-10.4); MONOCYTES % (AUTO) 6 % (2-9); NEUTROPHILS # (AUTO) 7.65 x10^3/uL (1.8-6.8); NEUTROPHILS % (AUTO) 86 % (42-75); PLATELET COUNT 254 x10^3/uL (130-400); RED BLOOD COUNT 3.98 x10^6/uL (3.82-5.3); RED CELL DISTRIBUTION WIDTH 17.2 % (9.6-15.2)
[2018-06-22 06:01] LABS: ANION GAP 12 mmol/L (5-15); CALCIUM 8.4 mg/dL (8.5-10.1); CHLORIDE 117 mmol/L (98-107)
[2018-06-22 06:04] LABS: CREATININE 0.87 mg/dL (0.55-1.02)
[2018-06-22 07:43] VITALS: BP 190/97
[2018-06-22] MEDS: INSULIN LISPRO 100 UNITS/ML, PEN SQ-INSULIN SCH ×4 (08:04→22:25)
[2018-06-22] MEDS: hydrALAzine 20 MG/ML, 1ML IV PRN (08:46)
[2018-06-22] MEDS: ACARBOSE 50 MG TABLET PO SCH ×3 (09:00→22:27)
[2018-06-22] MEDS: GABAPENTIN 100 MG CAPSULE PO SCH ×3 (09:00→22:28)
[2018-06-22] MEDS: SENNA/DOCUSATE TABLET PO SCH (09:00)
[2018-06-22] MEDS: LISINOPRIL 20 MG TABLET PO SCH (09:00)
[2018-06-22] MEDS: OMEPRAZOLE 20 MG CAPSULE.DR PO SCH ×2 (09:00→22:30)
[2018-06-22] MEDS: CLOPIDOGREL 75 MG TABLET PO SCH (09:00)
[2018-06-22] MEDS: AMLODIPINE 10 MG TAB PO SCH (09:00)
[2018-06-22] MEDS: LINAGLIPTIN 5 MG TAB PO SCH (09:00)
[2018-06-22] MEDS ORDERED: POTASSIUM CHLORIDE 40 MEQ in SODIUM CHLORIDE 0.9% 500 ML IV ONE (10:30)
[2018-06-22] MEDS ORDERED: SODIUM CHLORIDE 0.9%, 500ML IVBOLUS ONE (11:00)
[2018-06-22 11:40] LABS: CREATINE KINASE, TOTAL 78 U/L (26-192); TROPONIN I 0.162 ng/mL (0.000-0.045)
[2018-06-22 11:51] VITALS: BP 154/80
[2018-06-22] MEDS ORDERED: POTASSIUM PHOSPHATE 44 MEQ in SODIUM CHLORIDE 0.9% 500 ML IV ONE ×2 (13:00→16:00)
[2018-06-22] MEDS ORDERED: POTASSIUM PHOS 4.4 MEQ/ML IV ONE (13:00)
[2018-06-22] MEDS ORDERED: MAGNESIUM SULFATE 3 GM in SODIUM CHLORIDE 0.9% 100 ML IV ONE (13:00)
[2018-06-22 18:22] LABS: CREATINE KINASE, TOTAL 72 U/L (26-192); TROPONIN I 0.169 ng/mL (0.000-0.045)
[2018-06-22 20:07] VITALS: BP 180/84
[2018-06-22 22:15] VITALS: BP 149/85
[2018-06-22] MEDS: ATORVASTATIN 40 MG TABLET PO SCH (22:29)
[2018-06-22] MEDS: INSULIN DEGLUDEC 32 UNIT HOMEINJ SCH (22:30)
[2018-06-22 23:37] LABS: CREATINE KINASE, TOTAL 69 U/L (26-192); TROPONIN I 0.141 ng/mL (0.000-0.045)
[2018-06-23 00:20] VITALS: BP 168/76
[2018-06-23] MEDS: CEFEPIME 2 GM in DEXTROSE 5% 100 ML IV SCH (00:46)
[2018-06-23] MEDS: PROPRANOLOL 40 MG TABLET PO SCH ×2 (05:45→17:43)
[2018-06-23] MEDS: HEPARIN 5,000 UNITS/ML, 1ML SQ SCH ×4 (05:45→21:22)
[2018-06-23 06:49] VITALS: BP 152/73
[2018-06-23 07:01] LABS: BASOPHILS # (AUTO) 0.02 x10^3/uL (0-0.1); BASOPHILS % (AUTO) 0 % (0-1); EOSINOPHILS % (AUTO) 0 % (1-7); LYMPHOCYTES # (AUTO) 0.76 x10^3/uL (1-3.4); LYMPHOCYTES % (AUTO) 10 % (22-44); MD NO; MEAN CORPUSCULAR HEMOGLOBIN 30.6 pg (27.0-34.8); MEAN CORPUSCULAR HGB CONC 32.7 g/dL (32.4-35.8); MEAN CORPUSCULAR VOLUME 93.6 fL (80-100); MEAN PLATELET VOLUME 12.3 fL (7.4-10.4); MONOCYTES # (AUTO) 0.59 x10^3/uL (0.2-0.8); MONOCYTES % (AUTO) 7 % (2-9); NEUTROPHILS # (AUTO) 6.68 x10^3/uL (1.8-6.8); NEUTROPHILS % (AUTO) 83 % (42-75); PLATELET COUNT 195 x10^3/uL (130-400); RED BLOOD COUNT 3.85 x10^6/uL (3.82-5.3)
[2018-06-23 07:10] VITALS: BP 181/81
[2018-06-23 07:10] LABS: ALANINE AMINOTRANSFERASE 13 U/L (12-78); ALBUMIN 3.1 g/dL (3.4-5.0); ANION GAP 5 mmol/L (5-15); CALCIUM 8.3 mg/dL (8.5-10.1); CHLORIDE 125 mmol/L (98-107)
[2018-06-23 07:13] LABS: ALKALINE PHOSPHATASE 78 U/L (45-117); BILIRUBIN,TOTAL 0.8 mg/dL (0.2-1.0); CREATININE 0.89 mg/dL (0.55-1.02)
[2018-06-23] MEDS: SENNA/DOCUSATE TABLET PO SCH (09:00)
[2018-06-23] MEDS: OMEPRAZOLE 20 MG CAPSULE.DR PO SCH (09:00)
[2018-06-23] MEDS: LINAGLIPTIN 5 MG TAB PO SCH (09:00)
[2018-06-23] MEDS: ACARBOSE 50 MG TABLET PO SCH ×3 (09:00→20:15)
[2018-06-23] MEDS: INSULIN LISPRO 100 UNITS/ML, PEN SQ-INSULIN SCH ×5 (09:48→20:14)
[2018-06-23] MEDS: NS + 20MEQ KCL 1,000 ML IV SCH (10:55)
[2018-06-23] MEDS: OMEPRAZOLE/SOD. BICARB. PACKET NG SCH ×2 (10:55→20:15)
[2018-06-23] MEDS: LISINOPRIL 20 MG TABLET PO SCH (10:56)
[2018-06-23] MEDS: AMLODIPINE 10 MG TAB PO SCH (10:56)
[2018-06-23] MEDS: CLOPIDOGREL 75 MG TABLET PO SCH (10:56)
[2018-06-23] MEDS: GABAPENTIN 100 MG CAPSULE PO SCH ×3 (10:56→20:15)
[2018-06-23 13:55] VITALS: BP 134/75
[2018-06-23] MEDS ORDERED: PROPRANOLOL 20 MG TABLET ONE (17:37)
[2018-06-23] MEDS: INSULIN DEGLUDEC 32 UNIT HOMEINJ SCH (19:24)
[2018-06-23 20:05] VITALS: BP 146/74
[2018-06-23] MEDS: ATORVASTATIN 40 MG TABLET PO SCH (20:15)
[2018-06-24 00:44] VITALS: BP 146/78
[2018-06-24] MEDS: CEFEPIME 2 GM in DEXTROSE 5% 100 ML IV SCH (00:51)
[2018-06-24 05:41] LABS: ALBUMIN 2.9 g/dL (3.4-5.0); ANION GAP 6 mmol/L (5-15); CALCIUM 8.6 mg/dL (8.5-10.1); CHLORIDE 123 mmol/L (98-107)
[2018-06-24 05:45] LABS: ALANINE AMINOTRANSFERASE 14 U/L (12-78); ALKALINE PHOSPHATASE 70 U/L (45-117); BILIRUBIN,TOTAL 0.6 mg/dL (0.2-1.0); TOTAL PROTEIN 6.7 g/dL (6.4-8.2)
[2018-06-24 08:10] VITALS: BP 171/90
[2018-06-24] MEDS: SENNA/DOCUSATE TABLET PO SCH (08:27)
[2018-06-24] MEDS: OMEPRAZOLE/SOD. BICARB. PACKET NG SCH ×2 (09:00→22:19)
[2018-06-24] MEDS: LINAGLIPTIN 5 MG TAB PO SCH (09:00)
[2018-06-24] MEDS: ACARBOSE 50 MG TABLET PO SCH ×3 (09:00→21:00)
[2018-06-24] MEDS: INSULIN LISPRO 100 UNITS/ML, PEN SQ-INSULIN SCH ×4 (09:23→21:48)
[2018-06-24] MEDS ORDERED: POTASSIUM CHLORIDE 40 MEQ in SODIUM CHLORIDE 0.45% 1,000 ML IV ONE (09:30)
[2018-06-24] MEDS: CLOPIDOGREL 75 MG TABLET PO SCH (10:55)
[2018-06-24] MEDS: LISINOPRIL 20 MG TABLET PO SCH (10:55)
[2018-06-24] MEDS: GABAPENTIN 100 MG CAPSULE PO SCH ×3 (10:55→21:00)
[2018-06-24] MEDS: AMLODIPINE 10 MG TAB PO SCH (10:55)
[2018-06-24] MEDS: PROPRANOLOL 40 MG TABLET PO SCH ×2 (10:55→21:00)
[2018-06-24 14:15] VITALS: BP 136/71
[2018-06-24] MEDS: HEPARIN 5,000 UNITS/ML, 1ML SQ SCH (16:41)
[2018-06-24] MEDS: ATORVASTATIN 40 MG TABLET PO SCH (21:00)
[2018-06-24] MEDS: INSULIN DEGLUDEC 32 UNIT HOMEINJ SCH (21:00)
[2018-06-24 21:06] VITALS: BP 131/70
[2018-06-25 00:46] VITALS: BP 120/71
[2018-06-25] MEDS: PROPRANOLOL 40 MG TABLET PO SCH ×2 (05:45→16:38)
[2018-06-25 06:55] LABS: CLOSTRIDIUM DIFFICILE ANTIGEN NEGATIVE; CLOSTRIDIUM DIFFICILE TOXIN NEGATIVE (Negative)
[2018-06-25 07:33] VITALS: BP 158/78
[2018-06-25] MEDS: INSULIN LISPRO 100 UNITS/ML, PEN SQ-INSULIN SCH ×4 (08:34→23:02)
[2018-06-25] MEDS: GABAPENTIN 100 MG CAPSULE PO SCH ×3 (08:35→23:02)
[2018-06-25] MEDS: HEPARIN 5,000 UNITS/ML, 1ML SQ SCH ×2 (08:35)
[2018-06-25] MEDS: CLOPIDOGREL 75 MG TABLET PO SCH (08:35)
[2018-06-25] MEDS: LINAGLIPTIN 5 MG TAB PO SCH (08:35)
[2018-06-25] MEDS: LISINOPRIL 20 MG TABLET PO SCH (08:36)
[2018-06-25] MEDS: AMLODIPINE 10 MG TAB PO SCH (08:36)
[2018-06-25] MEDS: OMEPRAZOLE/SOD. BICARB. PACKET NG SCH ×2 (08:36→23:01)
[2018-06-25] MEDS: SENNA/DOCUSATE TABLET PO SCH (08:38)
[2018-06-25] MEDS: ACARBOSE 50 MG TABLET PO SCH ×3 (08:40→23:01)
[2018-06-25] MEDS ORDERED: INSULIN LISPRO 100 UNITS/ML, PEN SQ-INSULIN ONE (09:30)
[2018-06-25 10:07] LABS: ANION GAP 9 mmol/L (5-15); CALCIUM 8.9 mg/dL (8.5-10.1); CHLORIDE 118 mmol/L (98-107); CREATININE 1.16 mg/dL (0.55-1.02)
[2018-06-25] MEDS ORDERED: POTASSIUM CHLORIDE 40 MEQ in SODIUM CHLORIDE 0.45% 1,000 ML IV ONE (10:30)
[2018-06-25] MEDS ORDERED: INSULIN LISPRO 100 UNITS/ML, PEN SQ-INSULIN SCH (11:00)
[2018-06-25 12:29] VITALS: BP 119/69
--- NOTE | 2018-06-25 13:29 | NUR ---
Jevity 1.2 goal: 50 ml/hr. Addendum: 06/25/18 at [address] Amended: Links added.
[2018-06-25] MEDS ORDERED: MAGNESIUM SULFATE 1 GM in SODIUM CHLORIDE 0.9% 50 ML IV ONE (16:00)
[2018-06-25 19:22] VITALS: BP 150/75
[2018-06-25] MEDS: INSULIN DEGLUDEC 32 UNIT HOMEINJ SCH (21:00)
[2018-06-25] MEDS: ATORVASTATIN 40 MG TABLET PO SCH (23:01)
[2018-06-26 01:32] VITALS: BP 117/72
[2018-06-26] MEDS: INSULIN LISPRO 100 UNITS/ML, PEN SQ-INSULIN SCH ×4 (03:00→21:44)
[2018-06-26] MEDS: PROPRANOLOL 40 MG TABLET PO SCH ×2 (05:38→16:04)
[2018-06-26 08:06] LABS: BASOPHILS # (AUTO) 0.02 x10^3/uL (0-0.1); BASOPHILS % (AUTO) 0 % (0-1); EOSINOPHILS # (AUTO) 0.19 x10^3/uL (0-0.4); EOSINOPHILS % (AUTO) 4 % (1-7); LYMPHOCYTES # (AUTO) 1.02 x10^3/uL (1-3.4); LYMPHOCYTES % (AUTO) 19 % (22-44); MD NO; MEAN CORPUSCULAR HEMOGLOBIN 30.2 pg (27.0-34.8); MEAN CORPUSCULAR HGB CONC 31.8 g/dL (32.4-35.8); MEAN PLATELET VOLUME 13.7 fL (7.4-10.4); MONOCYTES # (AUTO) 0.35 x10^3/uL (0.2-0.8); MONOCYTES % (AUTO) 6 % (2-9); NEUTROPHILS # (AUTO) 3.87 x10^3/uL (1.8-6.8); NEUTROPHILS % (AUTO) 71 % (42-75); PLATELET COUNT 131 x10^3/uL (130-400); RED BLOOD COUNT 3.86 x10^6/uL (3.82-5.3); RED CELL DISTRIBUTION WIDTH 17.9 % (9.6-15.2)
[2018-06-26 08:10] LABS: INTERNATIONAL NORMALIZED RATIO 1.09 (0.93-1.1); PROTHROMBIN TIME 11.4 Seconds (9.6-11.5)
[2018-06-26 08:12] LABS: ALANINE AMINOTRANSFERASE 12 U/L (12-78); ALBUMIN 2.9 g/dL (3.4-5.0); ANION GAP 4 mmol/L (5-15); CHLORIDE 114 mmol/L (98-107)
[2018-06-26 08:15] LABS: ALKALINE PHOSPHATASE 72 U/L (45-117); BILIRUBIN,TOTAL 0.7 mg/dL (0.2-1.0); CREATININE 1.04 mg/dL (0.55-1.02); TOTAL PROTEIN 6.7 g/dL (6.4-8.2)
[2018-06-26] MEDS ORDERED: CEFAZOLIN 1,000 MG ONE (08:17)
[2018-06-26] MEDS ORDERED: PROPOFOL 10 MG/ML, 20ML ONE (08:17)
[2018-06-26] MEDS: OMEPRAZOLE/SOD. BICARB. PACKET NG SCH ×2 (09:00→21:45)
[2018-06-26 12:25] VITALS: BP 138/81
[2018-06-26] MEDS: SENNA/DOCUSATE TABLET PO SCH (12:57)
[2018-06-26] MEDS: GABAPENTIN 100 MG CAPSULE PO SCH ×3 (12:57→21:45)
[2018-06-26] MEDS: ACARBOSE 50 MG TABLET PO SCH ×3 (12:57→21:45)
[2018-06-26] MEDS: CLOPIDOGREL 75 MG TABLET PO SCH (12:57)
[2018-06-26] MEDS: LISINOPRIL 20 MG TABLET PO SCH (12:58)
[2018-06-26] MEDS: AMLODIPINE 10 MG TAB PO SCH (12:58)
[2018-06-26] MEDS: LINAGLIPTIN 5 MG TAB PO SCH (12:58)
[2018-06-26] MEDS: ACETAMINOPHEN 325 MG TABLET PO PRN ×2 (13:39→21:45)
[2018-06-26 19:00] VITALS: BP 129/74
[2018-06-26] MEDS ORDERED: INSULIN GLARGINE 100 UNITS/ML, PEN SQ-INSULIN SCH ×2 (21:00)
[2018-06-26] MEDS ORDERED: INSULIN DEGLUDEC 36 UNIT HOMEINJ SCH (21:00)
[2018-06-26] MEDS: ATORVASTATIN 40 MG TABLET PO SCH (21:44)
[2018-06-27 01:38] VITALS: BP 112/52
[2018-06-27] MEDS: INSULIN LISPRO 100 UNITS/ML, PEN SQ-INSULIN SCH ×4 (03:19→21:48)
[2018-06-27] MEDS: PROPRANOLOL 40 MG TABLET PO SCH ×2 (06:13→18:44)
[2018-06-27 08:15] VITALS: BP 155/82
[2018-06-27] MEDS: OMEPRAZOLE/SOD. BICARB. PACKET NG SCH ×2 (09:00→21:49)
[2018-06-27 10:26] LABS: ANION GAP 7 mmol/L (5-15); CALCIUM 8.9 mg/dL (8.5-10.1); CHLORIDE 113 mmol/L (98-107); CREATININE 0.95 mg/dL (0.55-1.02)
[2018-06-27] MEDS: LINAGLIPTIN 5 MG TAB PO SCH (10:40)
[2018-06-27] MEDS: CLOPIDOGREL 75 MG TABLET PO SCH (10:40)
[2018-06-27] MEDS: SENNA/DOCUSATE TABLET PO SCH (10:40)
[2018-06-27] MEDS: LISINOPRIL 20 MG TABLET PO SCH (10:40)
[2018-06-27] MEDS: ACARBOSE 50 MG TABLET PO SCH ×3 (10:40→21:49)
[2018-06-27] MEDS: AMLODIPINE 10 MG TAB PO SCH (10:41)
[2018-06-27] MEDS: GABAPENTIN 100 MG CAPSULE PO SCH ×3 (10:41→21:49)
[2018-06-27 13:43] VITALS: BP 99/66
[2018-06-27 19:27] VITALS: BP 113/74
[2018-06-27] MEDS ORDERED: INSULIN GLARGINE 100 UNITS/ML, PEN SQ-INSULIN SCH (21:00)
[2018-06-27] MEDS: ATORVASTATIN 40 MG TABLET PO SCH (21:49)
[2018-06-27] MEDS: ACETAMINOPHEN 325 MG TABLET PO PRN (21:49)
[2018-06-28 01:28] VITALS: BP 101/52
[2018-06-28] MEDS: INSULIN LISPRO 100 UNITS/ML, PEN SQ-INSULIN SCH ×4 (03:38→22:06)
[2018-06-28] MEDS: PROPRANOLOL 40 MG TABLET PO SCH ×2 (06:27→17:08)
[2018-06-28 06:56] LABS: ANION GAP 7 mmol/L (5-15); CALCIUM 8.6 mg/dL (8.5-10.1); CHLORIDE 110 mmol/L (98-107); CREATININE 1.03 mg/dL (0.55-1.02)
[2018-06-28] MEDS: GABAPENTIN 100 MG CAPSULE PO SCH ×3 (07:47→22:08)
[2018-06-28] MEDS: LINAGLIPTIN 5 MG TAB PO SCH (07:47)
[2018-06-28] MEDS: ACARBOSE 50 MG TABLET PO SCH ×3 (07:47→22:08)
[2018-06-28] MEDS: LISINOPRIL 20 MG TABLET PO SCH (07:48)
[2018-06-28] MEDS: ACETAMINOPHEN 325 MG TABLET PO PRN (07:48)
[2018-06-28] MEDS: SENNA/DOCUSATE TABLET PO SCH (07:48)
[2018-06-28] MEDS: CLOPIDOGREL 75 MG TABLET PO SCH (07:48)
[2018-06-28] MEDS: AMLODIPINE 10 MG TAB PO SCH (07:48)
[2018-06-28] MEDS: OMEPRAZOLE/SOD. BICARB. PACKET NG SCH ×2 (07:49→22:09)
[2018-06-28] MEDS: GUAIFENESIN/DM 100-10MG, 5ML UDC PO PRN ×2 (07:55→22:08)
[2018-06-28 07:56] VITALS: BP 117/65
[2018-06-28 15:32] VITALS: BP 129/69
[2018-06-28 19:50] VITALS: BP 128/70
[2018-06-28] MEDS ORDERED: INSULIN GLARGINE 100 UNITS/ML, PEN SQ-INSULIN SCH (21:00)
[2018-06-28] MEDS: ATORVASTATIN 40 MG TABLET PO SCH (22:09)
[2018-06-29 01:21] VITALS: BP 126/66
[2018-06-29] MEDS: INSULIN LISPRO 100 UNITS/ML, PEN SQ-INSULIN SCH ×4 (04:01→20:51)
[2018-06-29] MEDS: PROPRANOLOL 40 MG TABLET PO SCH ×2 (05:55→17:43)
[2018-06-29] MEDS: OMEPRAZOLE/SOD. BICARB. PACKET NG SCH ×2 (09:00→20:52)
[2018-06-29] MEDS: SENNA/DOCUSATE TABLET PO SCH (09:00)
[2018-06-29 09:12] VITALS: BP 155/70
[2018-06-29] MEDS: ALENDRONATE 70 MG TABLET PO SCH (09:29)
[2018-06-29] MEDS: ACARBOSE 50 MG TABLET PO SCH ×3 (09:29→20:53)
[2018-06-29] MEDS: LISINOPRIL 20 MG TABLET PO SCH (09:29)
[2018-06-29] MEDS: CLOPIDOGREL 75 MG TABLET PO SCH (09:29)
[2018-06-29] MEDS: AMLODIPINE 10 MG TAB PO SCH (09:29)
[2018-06-29] MEDS: LINAGLIPTIN 5 MG TAB PO SCH (09:29)
[2018-06-29] MEDS: GABAPENTIN 100 MG CAPSULE PO SCH ×3 (09:29→20:53)
[2018-06-29 14:39] VITALS: BP 145/75
[2018-06-29 19:33] VITALS: BP 151/65
[2018-06-29] MEDS: ATORVASTATIN 40 MG TABLET PO SCH (20:53)
[2018-06-29] MEDS ORDERED: INSULIN GLARGINE 100 UNITS/ML, PEN SQ-INSULIN SCH (21:00)
[2018-06-30 00:58] VITALS: BP 130/70
[2018-06-30] MEDS: INSULIN LISPRO 100 UNITS/ML, PEN SQ-INSULIN SCH ×4 (03:11→20:45)
[2018-06-30 07:06] VITALS: BP 115/67
[2018-06-30] MEDS: OMEPRAZOLE/SOD. BICARB. PACKET NG SCH ×2 (09:00→20:43)
[2018-06-30] MEDS: LISINOPRIL 20 MG TABLET PO SCH (09:00)
[2018-06-30] MEDS: SENNA/DOCUSATE TABLET PO SCH (09:49)
[2018-06-30] MEDS: LINAGLIPTIN 5 MG TAB PO SCH (09:49)
[2018-06-30] MEDS: GABAPENTIN 100 MG CAPSULE PO SCH ×3 (09:50→20:44)
[2018-06-30] MEDS: AMLODIPINE 10 MG TAB PO SCH (09:50)
[2018-06-30] MEDS: CLOPIDOGREL 75 MG TABLET PO SCH (09:50)
[2018-06-30] MEDS: PROPRANOLOL 40 MG TABLET PO SCH ×2 (09:50→16:25)
[2018-06-30] MEDS: ACARBOSE 50 MG TABLET PO SCH ×3 (09:50→20:44)
[2018-06-30 12:54] VITALS: BP 123/67
[2018-06-30 18:51] VITALS: BP 119/64
[2018-06-30] MEDS: ATORVASTATIN 40 MG TABLET PO SCH (20:44)
[2018-06-30] MEDS: ACETAMINOPHEN 325 MG TABLET PO PRN (20:44)
[2018-06-30] MEDS: INSULIN GLARGINE 100 UNITS/ML, PEN SQ-INSULIN SCH (20:45)
[2018-07-01 01:04] VITALS: BP 115/77
[2018-07-01] MEDS: INSULIN LISPRO 100 UNITS/ML, PEN SQ-INSULIN SCH ×4 (03:23→22:59)
[2018-07-01 07:10] VITALS: BP 135/75
[2018-07-01] MEDS ORDERED: POLYETHYLENE GLYCOL 17 GM PACKET PEG PRN (07:54)
[2018-07-01] MEDS: OMEPRAZOLE/SOD. BICARB. PACKET NG SCH ×2 (09:00→23:02)
[2018-07-01] MEDS: SENNOSIDES 8.8 MG/5 ML ORAL SOL PEG SCH (09:00)
[2018-07-01] MEDS: DOCUSATE 50 MG/5 ML, 10ML UDC PEG SCH (09:00)
[2018-07-01] MEDS: LINAGLIPTIN 5 MG TAB PEG SCH (09:00)
[2018-07-01] MEDS: ACETAMINOPHEN 650 MG/20.3 ML UDC PEG PRN (09:39)
[2018-07-01] MEDS: ACARBOSE 50 MG TABLET PEG SCH ×3 (10:50→22:58)
[2018-07-01] MEDS: CLOPIDOGREL 75 MG TABLET PEG SCH (10:50)
[2018-07-01] MEDS: AMLODIPINE 10 MG TAB NG SCH (10:50)
[2018-07-01] MEDS: GABAPENTIN 250 MG/5 ML ORAL SOL PO SCH ×3 (10:51→22:58)
[2018-07-01] MEDS: LISINOPRIL 20 MG TABLET PEG SCH (11:01)
[2018-07-01] MEDS: INSULIN GLARGINE 100 UNITS/ML, PEN SQ-INSULIN SCH ×2 (11:15→22:59)
[2018-07-01 12:05] VITALS: BP 91/54
[2018-07-01 17:55] VITALS: BP 116/69
[2018-07-01] MEDS: PROPRANOLOL 40 MG TABLET PEG SCH (17:56)
[2018-07-01 19:52] VITALS: BP 123/81
[2018-07-01] MEDS: ATORVASTATIN 40 MG TABLET PEG SCH (22:58)
[2018-07-02 01:46] VITALS: BP 114/72
[2018-07-02] MEDS: INSULIN LISPRO 100 UNITS/ML, PEN SQ-INSULIN SCH ×4 (03:22→21:00)
[2018-07-02] MEDS: PROPRANOLOL 40 MG TABLET PEG SCH ×2 (06:24→17:24)
[2018-07-02 07:11] VITALS: BP 117/67
[2018-07-02] MEDS: SENNOSIDES 8.8 MG/5 ML ORAL SOL PEG SCH (07:38)
[2018-07-02] MEDS: OMEPRAZOLE/SOD. BICARB. PACKET NG SCH ×2 (09:00→21:39)
[2018-07-02] MEDS: DOCUSATE 50 MG/5 ML, 10ML UDC PEG SCH (09:00)
[2018-07-02] MEDS: ACARBOSE 50 MG TABLET PEG SCH ×3 (09:03→21:40)
[2018-07-02] MEDS: GUAIFENESIN/DM 100-10MG, 5ML UDC PO PRN (09:03)
[2018-07-02] MEDS: CLOPIDOGREL 75 MG TABLET PEG SCH (09:04)
[2018-07-02] MEDS: LINAGLIPTIN 5 MG TAB PEG SCH (09:04)
[2018-07-02] MEDS: LISINOPRIL 20 MG TABLET PEG SCH (09:04)
[2018-07-02] MEDS: GABAPENTIN 250 MG/5 ML ORAL SOL PO SCH ×3 (09:04→21:40)
[2018-07-02] MEDS: AMLODIPINE 10 MG TAB NG SCH (09:05)
[2018-07-02] MEDS: INSULIN GLARGINE 100 UNITS/ML, PEN SQ-INSULIN SCH ×2 (09:06→21:39)
[2018-07-02] MEDS: ACETAMINOPHEN 650 MG/20.3 ML UDC PEG PRN (09:06)
[2018-07-02 14:31] VITALS: BP 115/56
--- NOTE | 2018-07-02 15:27 | NUR ---
REC: Pureed diet with NTL; bolus TFs for supplemental hydration/nutrition; swallow precautions posted in room Addendum: 07/02/18 at 1527 by Tonya RODRÍGUEZ Amended: Links added.
[2018-07-02 19:45] VITALS: BP 103/60
[2018-07-02] MEDS: ATORVASTATIN 40 MG TABLET PEG SCH (21:40)
[2018-07-03 01:15] VITALS: BP 103/58
[2018-07-03] MEDS: INSULIN LISPRO 100 UNITS/ML, PEN SQ-INSULIN SCH ×5 (03:27→21:52)
[2018-07-03] MEDS: PROPRANOLOL 40 MG TABLET PEG SCH ×2 (05:48→17:13)
[2018-07-03 06:21] VITALS: BP 131/71
[2018-07-03] MEDS: DOCUSATE 50 MG/5 ML, 10ML UDC PEG SCH (07:33)
[2018-07-03] MEDS: SENNOSIDES 8.8 MG/5 ML ORAL SOL PEG SCH (07:34)
[2018-07-03] MEDS: GABAPENTIN 250 MG/5 ML ORAL SOL PO SCH ×3 (09:00→21:51)
[2018-07-03] MEDS: OMEPRAZOLE/SOD. BICARB. PACKET NG SCH ×2 (09:00→21:51)
[2018-07-03] MEDS: LISINOPRIL 20 MG TABLET PEG SCH (09:26)
[2018-07-03] MEDS: AMLODIPINE 10 MG TAB NG SCH (09:26)
[2018-07-03] MEDS: CLOPIDOGREL 75 MG TABLET PEG SCH (09:26)
[2018-07-03] MEDS: INSULIN GLARGINE 100 UNITS/ML, PEN SQ-INSULIN SCH ×2 (09:26→21:51)
[2018-07-03] MEDS: LINAGLIPTIN 5 MG TAB PEG SCH (09:26)
[2018-07-03] MEDS: ACARBOSE 50 MG TABLET PEG SCH ×3 (09:27→21:50)
[2018-07-03 12:19] VITALS: BP 117/66
[2018-07-03] MEDS: GUAIFENESIN/DM 100-10MG, 5ML UDC PO PRN (17:30)
[2018-07-03 18:37] VITALS: BP 112/65
[2018-07-03] MEDS: ATORVASTATIN 40 MG TABLET PEG SCH (21:50)
[2018-07-03] MEDS: ACETAMINOPHEN 650 MG/20.3 ML UDC PEG PRN (21:51)
[2018-07-04 01:09] VITALS: BP 106/62
[2018-07-04] MEDS: BENZONATATE 100 MG CAPSULE PO PRN ×2 (06:19→09:24)
[2018-07-04] MEDS: PROPRANOLOL 40 MG TABLET PEG SCH ×2 (06:19→16:51)
[2018-07-04 07:59] VITALS: BP 113/61
[2018-07-04] MEDS: SENNOSIDES 8.8 MG/5 ML ORAL SOL PEG SCH (09:00)
[2018-07-04] MEDS: OMEPRAZOLE/SOD. BICARB. PACKET NG SCH ×2 (09:00→21:51)
[2018-07-04] MEDS: LISINOPRIL 20 MG TABLET PEG SCH (09:00)
[2018-07-04] MEDS: GUAIFENESIN/DM 100-10MG, 5ML UDC PO PRN (09:23)
[2018-07-04] MEDS: GABAPENTIN 250 MG/5 ML ORAL SOL PO SCH ×3 (09:23→21:48)
[2018-07-04] MEDS: AMLODIPINE 10 MG TAB NG SCH (09:23)
[2018-07-04] MEDS: DOCUSATE 50 MG/5 ML, 10ML UDC PEG SCH (09:24)
[2018-07-04] MEDS: CLOPIDOGREL 75 MG TABLET PEG SCH (09:24)
[2018-07-04] MEDS: ACARBOSE 50 MG TABLET PEG SCH ×3 (09:24→21:51)
[2018-07-04] MEDS: LINAGLIPTIN 5 MG TAB PEG SCH (09:24)
[2018-07-04] MEDS: INSULIN LISPRO 100 UNITS/ML, PEN SQ-INSULIN SCH ×4 (09:29→21:53)
[2018-07-04] MEDS: INSULIN GLARGINE 100 UNITS/ML, PEN SQ-INSULIN SCH ×2 (09:29→21:52)
[2018-07-04] MEDS: ACETAMINOPHEN 650 MG/20.3 ML UDC PEG PRN ×3 (12:29→22:56)
[2018-07-04 13:14] VITALS: BP 96/61
[2018-07-04 19:33] VITALS: BP 123/55
[2018-07-04] MEDS: ATORVASTATIN 40 MG TABLET PEG SCH (21:51)
[2018-07-05 01:07] VITALS: BP 100/54
[2018-07-05] MEDS: PROPRANOLOL 40 MG TABLET PEG SCH ×2 (05:47→16:45)
[2018-07-05] MEDS: INSULIN LISPRO 100 UNITS/ML, PEN SQ-INSULIN SCH ×4 (07:00→19:53)
[2018-07-05] MEDS: LISINOPRIL 20 MG TABLET PEG SCH (09:00)
[2018-07-05] MEDS: SENNOSIDES 8.8 MG/5 ML ORAL SOL PEG SCH (09:00)
[2018-07-05] MEDS: DOCUSATE 50 MG/5 ML, 10ML UDC PEG SCH (09:00)
[2018-07-05] MEDS: AMLODIPINE 10 MG TAB NG SCH (09:00)
[2018-07-05] MEDS: OMEPRAZOLE/SOD. BICARB. PACKET NG SCH ×2 (09:00→23:27)
[2018-07-05 09:06] VITALS: BP 95/54
[2018-07-05] MEDS: ACARBOSE 50 MG TABLET PEG SCH ×3 (09:32→23:32)
[2018-07-05] MEDS: GABAPENTIN 250 MG/5 ML ORAL SOL PO SCH ×3 (09:32→23:25)
[2018-07-05] MEDS: CLOPIDOGREL 75 MG TABLET PEG SCH (09:32)
[2018-07-05] MEDS: LINAGLIPTIN 5 MG TAB PEG SCH (09:32)
[2018-07-05] MEDS: INSULIN GLARGINE 100 UNITS/ML, PEN SQ-INSULIN SCH ×2 (09:33→23:26)
[2018-07-05 12:41] VITALS: BP 94/54
[2018-07-05 16:40] VITALS: BP 107/61
[2018-07-05 19:51] VITALS: BP 113/65
[2018-07-05] MEDS: ATORVASTATIN 40 MG TABLET PEG SCH (23:26)
[2018-07-06 01:11] VITALS: BP 122/72
[2018-07-06] MEDS: PROPRANOLOL 40 MG TABLET PEG SCH ×2 (05:51→18:39)
[2018-07-06] MEDS: ALENDRONATE 70 MG TABLET PO SCH (05:51)
[2018-07-06 08:19] VITALS: BP 134/75
[2018-07-06] MEDS: INSULIN LISPRO 100 UNITS/ML, PEN SQ-INSULIN SCH ×4 (08:21→20:57)
[2018-07-06] MEDS: GABAPENTIN 250 MG/5 ML ORAL SOL PO SCH ×3 (08:22→20:55)
[2018-07-06] MEDS: OMEPRAZOLE/SOD. BICARB. PACKET NG SCH ×2 (08:22→20:56)
[2018-07-06] MEDS: SENNOSIDES 8.8 MG/5 ML ORAL SOL PEG SCH (08:23)
[2018-07-06] MEDS: AMLODIPINE 10 MG TAB NG SCH (08:23)
[2018-07-06] MEDS: ACARBOSE 50 MG TABLET PEG SCH ×3 (08:23→20:56)
[2018-07-06] MEDS: DOCUSATE 50 MG/5 ML, 10ML UDC PEG SCH (08:23)
[2018-07-06] MEDS: LISINOPRIL 20 MG TABLET PEG SCH (08:23)
[2018-07-06] MEDS: CLOPIDOGREL 75 MG TABLET PEG SCH (08:23)
[2018-07-06] MEDS: LINAGLIPTIN 5 MG TAB PEG SCH (08:23)
[2018-07-06] MEDS: INSULIN GLARGINE 100 UNITS/ML, PEN SQ-INSULIN SCH ×2 (08:24→20:57)
[2018-07-06 16:08] VITALS: BP 153/78
[2018-07-06] MEDS: ACETAMINOPHEN 650 MG/20.3 ML UDC PEG PRN (16:36)
[2018-07-06 19:13] VITALS: BP 117/63
[2018-07-06] MEDS: ATORVASTATIN 40 MG TABLET PEG SCH (20:56)
[2018-07-07 00:54] VITALS: BP 145/66
[2018-07-07] MEDS: PROPRANOLOL 40 MG TABLET PEG SCH ×2 (05:33→16:04)
[2018-07-07] MEDS: INSULIN LISPRO 100 UNITS/ML, PEN SQ-INSULIN SCH ×3 (07:00→16:00)
[2018-07-07 07:04] VITALS: BP 139/72
[2018-07-07] MEDS: LINAGLIPTIN 5 MG TAB PEG SCH (09:00)
[2018-07-07] MEDS ORDERED: SENNA 176 MG/5 ML ORAL SOL PEG SCH (09:00)
[2018-07-07] MEDS: LISINOPRIL 20 MG TABLET PEG SCH (09:00)
[2018-07-07] MEDS: ACARBOSE 50 MG TABLET PEG SCH ×2 (09:00→16:04)
[2018-07-07] MEDS: DOCUSATE 50 MG/5 ML, 10ML UDC PEG SCH (09:00)
[2018-07-07] MEDS: CLOPIDOGREL 75 MG TABLET PEG SCH (09:00)
[2018-07-07] MEDS: OMEPRAZOLE/SOD. BICARB. PACKET NG SCH (09:00)
[2018-07-07] MEDS: INSULIN GLARGINE 100 UNITS/ML, PEN SQ-INSULIN SCH (09:00)
[2018-07-07] MEDS: AMLODIPINE 10 MG TAB NG SCH (09:00)
[2018-07-07] MEDS: GABAPENTIN 250 MG/5 ML ORAL SOL PO SCH ×2 (09:00→16:04)
[2018-07-07 13:29] VITALS: BP 110/66
[2018-07-07] MEDS ORDERED: ACAR50TA3 PEG (17:36)
[2018-07-07] MEDS ORDERED: SENN176S PEG (17:36)
[2018-07-07] MEDS ORDERED: ACET650S21 PEG (17:36)
[2018-07-07] MEDS ORDERED: PROP40TA PEG (17:36)
[2018-07-07] MEDS ORDERED: AMLO10TA8 PEG (17:36)
[2018-07-07] MEDS ORDERED: INSU100I11 SQ-INSULIN (17:36)
[2018-07-07] MEDS ORDERED: GUAI5SYR PO (17:36)
[2018-07-07] MEDS ORDERED: INSU100I13 SQ-INSULIN (17:36)
[2018-07-07] MEDS ORDERED: GABA250S3 PEG (17:36)
[2018-07-07] MEDS ORDERED: ALEN70TA6 PEG (17:36)
[2018-07-07] MEDS ORDERED: ATOR40TA78 PEG (17:36)
[2018-07-07] MEDS ORDERED: LISI-170 PEG (17:36)
[2018-07-07] MEDS ORDERED: CLOP75TA PEG (17:36)
[2018-07-07] MEDS ORDERED: LINA5TAB PEG (17:36)
[2018-07-07] MEDS ORDERED: OMEP1PAC PEG (17:36)
== END 2018-07-07 19:00 | disposition home health service (06) | DRG 871 ==
LOC: ED 23:58 → EDIP 06-07 00:25 → 3NE 06-07 00:42 → 5SO 06-22 13:35 → 3NE 06-24 18:30
PROVIDERS: ADMIT Internal Medicine; ATTEND Internal Medicine
PROC: 0T9B70Z Drainage of Bladder with Drainage Device, Via Natural or Artificial Opening (ICD-10-PCS; 2018-06-06)
PROC: 3E0G76Z Introduction of Nutritional Substance into Upper GI, Via Natural or Artificial Opening (ICD-10-PCS; 2018-06-26)
PROC: 0DH63UZ Insertion of Feeding Device into Stomach, Percutaneous Approach (ICD-10-PCS; principal; 2018-06-26 08:30)
DX: A41.52 Sepsis due to Pseudomonas (principal); E43 Unspecified severe protein-calorie malnutrition; G93.40 Encephalopathy, unspecified; N39.0 Urinary tract infection, site not specified; I50.32 Chronic diastolic (congestive) heart failure; N17.9 Acute kidney failure, unspecified; I13.0 Hypertensive heart and chronic kidney disease with heart failure and stage 1 through stage 4 chronic kidney disease, or unspecified chronic kidney disease; E87.1 Hypo-osmolality and hyponatremia; E87.0 Hyperosmolality and hypernatremia; E87.2 Acidosis; Z66 Do not resuscitate; R13.14 Dysphagia, pharyngoesophageal phase; M19.90 Unspecified osteoarthritis, unspecified site; K21.9 Gastro-esophageal reflux disease without esophagitis; M50.30 Other cervical disc degeneration, unspecified cervical region; N18.3 Chronic kidney disease, stage 3 (moderate); I25.10 Atherosclerotic heart disease of native coronary artery without angina pectoris; E87.6 Hypokalemia; E86.0 Dehydration; E11.22 Type 2 diabetes mellitus with diabetic chronic kidney disease; D50.9 Iron deficiency anemia, unspecified; E78.5 Hyperlipidemia, unspecified; E87.8 Other disorders of electrolyte and fluid balance, not elsewhere classified; R32 Unspecified urinary incontinence; R13.12 Dysphagia, oropharyngeal phase; Z95.828 Presence of other vascular implants and grafts; I25.2 Old myocardial infarction; Z91.81 History of falling; Z90.710 Acquired absence of both cervix and uterus; Z88.0 Allergy status to penicillin; Z87.440 Personal history of urinary (tract) infections; Z86.73 Personal history of transient ischemic attack (TIA), and cerebral infarction without residual deficits; Z86.718 Personal history of other venous thrombosis and embolism; Z86.711 Personal history of pulmonary embolism; Z82.49 Family history of ischemic heart disease and other diseases of the circulatory system; Z79.4 Long term (current) use of insulin; Z95.5 Presence of coronary angioplasty implant and graft; Z90.49 Acquired absence of other specified parts of digestive tract; Z90.89 Acquired absence of other organs; Z79.01 Long term (current) use of anticoagulants; Z88.1 Allergy status to other antibiotic agents; Z68.27 Body mass index [BMI] 27.0-27.9, adult
CPT/HCPCS: 36415; 70450; 71045; 74018; 74230; 80048; 80053; 81001; 82040; 82550; 82553; 82947; 82962; 83036; 83605; 83735; 84100; 84443; 84484; 85025; 85610; 86480; 87040; 87077; 87086; 87186; 87324; 93005; 93306; 99285; B4087; G0378; J0690; J0696; J0713; J1644; J2704; J3475; J3480; Q0162; 92522-GN; 92523-GN; J0360; J1815; J7030; J7040; J7050

== ENCOUNTER 2018-10-08 13:08 | Inpatient (IN) | payer MEDICARE ==
[~2018-10-08] VITALS: Ht 165.1 cm; Wt 80.6 kg
[~2018-10-08 13:08] MED LIST changes: +ACAR50TA3 PEG; +ACET650S21 PEG; +ALEN70TA6 PEG; +AMLO10TA8 PEG; +ATOR40TA78 PEG; +CLOP75TA PEG; -FLUT16SP NAS; +FLUT16SP24 NAS; +GABA250S3 PEG; +GUAI5SYR PO; +INSU100I11 SQ-INSULIN; +INSU100I13 SQ-INSULIN; +LINA5TAB PEG; +LISI-170 PEG; +OMEP1PAC PEG; +PROP40TA PEG; +SENN176S PEG
[2018-10-08] MEDS ORDERED: FUROSEMIDE 40 MG/4 ML IV SCH (13:30)
[2018-10-08 13:53] LABS: BASOPHILS # (AUTO) 0.09 x10^3/uL (0-0.1); BASOPHILS % (AUTO) 1 % (0-1); EOSINOPHILS # (AUTO) 0.22 x10^3/uL (0-0.4); EOSINOPHILS % (AUTO) 3 % (1-7); LYMPHOCYTES # (AUTO) 0.93 x10^3/uL (1-3.4); LYMPHOCYTES % (AUTO) 11 % (22-44); MD NO; MEAN CORPUSCULAR HEMOGLOBIN 28.8 pg (27.0-34.8); MEAN PLATELET VOLUME 10.3 fL (7.4-10.4); MONOCYTES % (AUTO) 6 % (2-9); NEUTROPHILS # (AUTO) 6.87 x10^3/uL (1.8-6.8); NEUTROPHILS % (AUTO) 80 % (42-75); PLATELET COUNT 310 x10^3/uL (130-400); RED BLOOD COUNT 3.66 x10^6/uL (3.82-5.3); RED CELL DISTRIBUTION WIDTH 17.1 % (9.6-15.2)
[2018-10-08] MEDS ORDERED: FURO20TA3 PO (13:55)
[2018-10-08] MEDS ORDERED: SENN-88 PO (13:55)
[2018-10-08] MEDS ORDERED: OMEP-110 PO (13:55)
[2018-10-08] MEDS ORDERED: POTA10TA5 PO (13:55)
[2018-10-08] MEDS ORDERED: GABA100C PO (13:55)
[2018-10-08] MEDS ORDERED: INSU100I28 SQ (13:55)
[2018-10-08] MEDS ORDERED: GABA300C10 PO (13:55)
[2018-10-08] MEDS ORDERED: SPIR25TA5 PO (13:55)
--- NOTE | 2018-10-08 13:57 | NUR ---
PT C/O INCREASING BILATERAL LEG SWELLING WITH DECREASED ABILITY TO BE ABLE TO WALK WITH WALKER. PT REPORTS LAST FALL SHE WAS ABLE TO WALK WITH A WALKER AND DRIVE A CAR, BUT SINCE HER SHOULDER SURGERY THIS PAST FALL SHE HAS NOT BEEN ABLE TO DO IT. 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 PT DENIES ANY CP OR SOB. US AT BEDSIDE.
[2018-10-08 14:02] LABS: INTERNATIONAL NORMALIZED RATIO 0.99 (0.93-1.1); PROTHROMBIN TIME 10.4 Seconds (9.6-11.5)
[2018-10-08 14:04] LABS: ALBUMIN 3.6 g/dL (3.4-5.0); ANION GAP 8 mmol/L (5-15); CALCIUM 9.1 mg/dL (8.5-10.1); CHLORIDE 107 mmol/L (98-107)
[2018-10-08 14:10] LABS: ALANINE AMINOTRANSFERASE 11 U/L (12-78); ALKALINE PHOSPHATASE 118 U/L (45-117); BILIRUBIN,TOTAL 0.7 mg/dL (0.2-1.0); CREATININE 1.33 mg/dL (0.55-1.02); TOTAL PROTEIN 8.4 g/dL (6.4-8.2)
[2018-10-08] MEDS ORDERED: FUROSEMIDE 40 MG/4 ML ONE (14:35)
--- NOTE | 2018-10-08 14:46 | NUR ---
PT MEDICATED ORDERED. PT GIVEN CALL LIGHT IF SHE NEEDS TO VOID SOON.
[2018-10-08] MEDS ORDERED: ENOXAPARIN 80 MG/0.8 ML SQ ONE (15:30)
[2018-10-08] MEDS ORDERED: Enoxaparin 1 mg/kg protocol SQ ONE (15:30)
[2018-10-08] MEDS ORDERED: ENOXAPARIN 80 MG/0.8 ML ONE (15:49)
[2018-10-08] MEDS ORDERED: DOCUSATE 100 MG CAPSULE PO PRN (16:30)
[2018-10-08] MEDS ORDERED: LABETALOL 5MG/ML, 20ML IVPush PRN (16:30)
[2018-10-08] MEDS ORDERED: GUAIFENESIN/DM 100-10MG, 5ML UDC PO PRN (16:30)
[2018-10-08] MEDS ORDERED: ACETAMINOPHEN 325 MG TABLET PO PRN (16:30)
[2018-10-08] MEDS ORDERED: Enoxaparin 1 mg/kg protocol SQ SCH (16:30)
[2018-10-08] MEDS ORDERED: ACETAMINOPHEN 500 MG TABLET PO PRN (16:30)
[2018-10-08] MEDS ORDERED: ONDANSETRON ODT 4 MG PO PRN (16:30)
[2018-10-08] MEDS ORDERED: SENNOSIDES 8.6 MG TABLET PO PRN (16:30)
[2018-10-08 17:26] VITALS: BP 134/72
[2018-10-08] MEDS ORDERED: PROPRANOLOL 40 MG TABLET PEG SCH (18:00)
[2018-10-08 18:45] VITALS: BP 126/73
[2018-10-08] MEDS ORDERED: FAMOTIDINE 20 MG TABLET PO SCH (21:00)
[2018-10-08] MEDS: GABAPENTIN 100 MG CAPSULE PO SCH (22:01)
[2018-10-08] MEDS: SODIUM CHLORIDE FLUSH 10ML SYR IVF SCH (22:02)
[2018-10-08] MEDS: INSULIN GLARGINE 100 UNITS/ML, PEN SQ-INSULIN SCH (22:02)
[2018-10-09 01:06] VITALS: BP 132/62
[2018-10-09] MEDS: GUAIFENESIN/DM 200-20MG, 10ML UDC PO PRN ×2 (01:58→20:48)
[2018-10-09 04:45] LABS: BASOPHILS # (AUTO) 0.03 x10^3/uL (0-0.1); BASOPHILS % (AUTO) 0 % (0-1); EOSINOPHILS # (AUTO) 0.26 x10^3/uL (0-0.4); EOSINOPHILS % (AUTO) 3 % (1-7); LYMPHOCYTES # (AUTO) 1.04 x10^3/uL (1-3.4); LYMPHOCYTES % (AUTO) 13 % (22-44); MD NO; MEAN CORPUSCULAR HEMOGLOBIN 28.8 pg (27.0-34.8); MEAN CORPUSCULAR HGB CONC 32.5 g/dL (32.4-35.8); MEAN CORPUSCULAR VOLUME 88.6 fL (80-100); MONOCYTES # (AUTO) 0.57 x10^3/uL (0.2-0.8); MONOCYTES % (AUTO) 7 % (2-9); NEUTROPHILS # (AUTO) 6.31 x10^3/uL (1.8-6.8); NEUTROPHILS % (AUTO) 77 % (42-75); PLATELET COUNT 252 x10^3/uL (130-400); RED BLOOD COUNT 3.19 x10^6/uL (3.82-5.3); RED CELL DISTRIBUTION WIDTH 16.6 % (9.6-15.2)
[2018-10-09 04:48] LABS: ALANINE AMINOTRANSFERASE 11 U/L (12-78); ALBUMIN 2.9 g/dL (3.4-5.0); ANION GAP 8 mmol/L (5-15); CALCIUM 8.9 mg/dL (8.5-10.1); CHLORIDE 107 mmol/L (98-107); CREATININE 1.39 mg/dL (0.55-1.02)
[2018-10-09 04:50] LABS: ALKALINE PHOSPHATASE 91 U/L (45-117); BILIRUBIN,TOTAL 0.6 mg/dL (0.2-1.0)
[2018-10-09] MEDS: OMEPRAZOLE 20 MG CAPSULE.DR PO SCH (05:31)
[2018-10-09] MEDS: PROPRANOLOL 40 MG TABLET PO SCH ×2 (05:31→20:36)
[2018-10-09 06:38] VITALS: BP 117/71
[2018-10-09] MEDS ORDERED: MAGNESIUM SULFATE 20 GM/500 ML IV SCH (07:00)
[2018-10-09] MEDS: SODIUM CHLORIDE FLUSH 10ML SYR IVF SCH ×2 (09:00→20:36)
[2018-10-09] MEDS: SPIRONOLACTONE 25 MG TABLET PO SCH (10:17)
[2018-10-09] MEDS: AMLODIPINE 10 MG TAB PO SCH (10:17)
[2018-10-09] MEDS: MULTIVITS,STRESS FORMULA 1 TABLET PO SCH (10:17)
[2018-10-09] MEDS: LISINOPRIL 20 MG TABLET PO SCH (10:17)
[2018-10-09] MEDS: FUROSEMIDE 40 MG/4 ML IV SCH ×2 (10:18→15:57)
[2018-10-09] MEDS: GABAPENTIN 100 MG CAPSULE PO SCH ×3 (10:18→20:35)
[2018-10-09] MEDS: RIVAROXABAN 15 MG TABLET PO SCH ×2 (10:18→15:57)
[2018-10-09] MEDS: INSULIN GLARGINE 100 UNITS/ML, PEN SQ-INSULIN SCH ×2 (10:19→20:36)
[2018-10-09] MEDS: ASCORBIC ACID 500 MG TABLET PO SCH ×2 (10:21→20:35)
[2018-10-09] MEDS ORDERED: OXYcodone/APAP 5/325MG TABLET PO PRN (10:30)
[2018-10-09 13:39] VITALS: BP 120/68
[2018-10-09 18:52] VITALS: BP 100/59
[2018-10-09] MEDS: CHOLECALCIFEROL 400 UNITS/ML ORAL SOL PO SCH (20:46)
[2018-10-10 01:43] VITALS: BP 108/64
[2018-10-10 05:27] LABS: ANION GAP 8 mmol/L (5-15); CALCIUM 8.7 mg/dL (8.5-10.1); CHLORIDE 108 mmol/L (98-107)
[2018-10-10 05:28] LABS: CREATININE 1.29 mg/dL (0.55-1.02)
[2018-10-10 05:54] LABS: BASOPHILS # (AUTO) 0.03 x10^3/uL (0-0.1); BASOPHILS % (AUTO) 0 % (0-1); EOSINOPHILS # (AUTO) 0.14 x10^3/uL (0-0.4); EOSINOPHILS % (AUTO) 2 % (1-7); LYMPHOCYTES # (AUTO) 1.08 x10^3/uL (1-3.4); LYMPHOCYTES % (AUTO) 17 % (22-44); MD NO; MEAN CORPUSCULAR HEMOGLOBIN 28.6 pg (27.0-34.8); MEAN CORPUSCULAR HGB CONC 32.5 g/dL (32.4-35.8); MEAN CORPUSCULAR VOLUME 88.2 fL (80-100); MEAN PLATELET VOLUME 9.9 fL (7.4-10.4); MONOCYTES # (AUTO) 0.62 x10^3/uL (0.2-0.8); MONOCYTES % (AUTO) 10 % (2-9); NEUTROPHILS # (AUTO) 4.39 x10^3/uL (1.8-6.8); NEUTROPHILS % (AUTO) 70 % (42-75); PLATELET COUNT 234 x10^3/uL (130-400); RED BLOOD COUNT 3.29 x10^6/uL (3.82-5.3); RED CELL DISTRIBUTION WIDTH 16.4 % (9.6-15.2)
[2018-10-10] MEDS: OMEPRAZOLE 20 MG CAPSULE.DR PO SCH (06:19)
[2018-10-10] MEDS: PROPRANOLOL 40 MG TABLET PO SCH ×2 (06:19→17:53)
[2018-10-10 07:36] VITALS: BP 108/63
[2018-10-10] MEDS: LISINOPRIL 20 MG TABLET PO SCH (09:00)
[2018-10-10] MEDS: AMLODIPINE 10 MG TAB PO SCH (09:00)
[2018-10-10] MEDS: GABAPENTIN 100 MG CAPSULE PO SCH ×3 (09:10→20:17)
[2018-10-10] MEDS: SPIRONOLACTONE 25 MG TABLET PO SCH (09:11)
[2018-10-10] MEDS: ASCORBIC ACID 500 MG TABLET PO SCH ×2 (09:11→16:37)
[2018-10-10] MEDS: RIVAROXABAN 15 MG TABLET PO SCH ×2 (09:11→16:37)
[2018-10-10] MEDS: MULTIVITS,STRESS FORMULA 1 TABLET PO SCH (09:11)
[2018-10-10] MEDS: FUROSEMIDE 40 MG/4 ML IV SCH ×2 (09:11→12:55)
[2018-10-10] MEDS: SODIUM CHLORIDE FLUSH 10ML SYR IVF SCH ×2 (09:12→20:17)
[2018-10-10] MEDS: INSULIN GLARGINE 100 UNITS/ML, PEN SQ-INSULIN SCH ×2 (09:12→20:17)
[2018-10-10 12:58] VITALS: BP 110/57
[2018-10-10] MEDS ORDERED: MAGNESIUM SULFATE PMX 2GM/50ML 50 ML IV ONE (16:30)
[2018-10-10 17:51] VITALS: BP 115/69
[2018-10-10] MEDS: CHOLECALCIFEROL 400 UNITS/ML ORAL SOL PO SCH (17:54)
[2018-10-10 19:25] VITALS: BP 103/60
[2018-10-10] MEDS: GUAIFENESIN/DM 200-20MG, 10ML UDC PO PRN (20:17)
[2018-10-11 02:16] VITALS: BP 111/66
[2018-10-11] MEDS: OMEPRAZOLE 20 MG CAPSULE.DR PO SCH (05:25)
[2018-10-11] MEDS: PROPRANOLOL 40 MG TABLET PO SCH ×2 (05:25→17:09)
[2018-10-11 05:53] LABS: BASOPHILS # (AUTO) 0.02 x10^3/uL (0-0.1); BASOPHILS % (AUTO) 0 % (0-1); EOSINOPHILS # (AUTO) 0.17 x10^3/uL (0-0.4); EOSINOPHILS % (AUTO) 3 % (1-7); LYMPHOCYTES # (AUTO) 0.88 x10^3/uL (1-3.4); LYMPHOCYTES % (AUTO) 13 % (22-44); MD NO; MEAN CORPUSCULAR HGB CONC 31.8 g/dL (32.4-35.8); MEAN CORPUSCULAR VOLUME 87.8 fL (80-100); MEAN PLATELET VOLUME 9.6 fL (7.4-10.4); MONOCYTES # (AUTO) 0.63 x10^3/uL (0.2-0.8); MONOCYTES % (AUTO) 9 % (2-9); NEUTROPHILS # (AUTO) 5.29 x10^3/uL (1.8-6.8); NEUTROPHILS % (AUTO) 76 % (42-75); PLATELET COUNT 261 x10^3/uL (130-400); RED BLOOD COUNT 3.35 x10^6/uL (3.82-5.3); RED CELL DISTRIBUTION WIDTH 16.7 % (9.6-15.2)
[2018-10-11 06:07] LABS: ALBUMIN 3.3 g/dL (3.4-5.0); ANION GAP 8 mmol/L (5-15); CHLORIDE 106 mmol/L (98-107)
[2018-10-11 06:09] LABS: CREATININE 1.46 mg/dL (0.55-1.02)
[2018-10-11 08:08] VITALS: BP 99/56
[2018-10-11] MEDS: SODIUM CHLORIDE FLUSH 10ML SYR IVF SCH (09:00)
[2018-10-11] MEDS: AMLODIPINE 10 MG TAB PO SCH (09:47)
[2018-10-11] MEDS: GABAPENTIN 100 MG CAPSULE PO SCH ×2 (09:47→17:09)
[2018-10-11] MEDS: RIVAROXABAN 15 MG TABLET PO SCH ×2 (09:48→17:09)
[2018-10-11] MEDS: FUROSEMIDE 40 MG/4 ML IV SCH ×2 (09:48→12:36)
[2018-10-11] MEDS: ASCORBIC ACID 500 MG TABLET PO SCH ×2 (09:48→17:09)
[2018-10-11] MEDS: LISINOPRIL 20 MG TABLET PO SCH (09:48)
[2018-10-11] MEDS: SPIRONOLACTONE 25 MG TABLET PO SCH (09:48)
[2018-10-11] MEDS: MULTIVITS,STRESS FORMULA 1 TABLET PO SCH (09:48)
[2018-10-11] MEDS: INSULIN GLARGINE 100 UNITS/ML, PEN SQ-INSULIN SCH (09:49)
[2018-10-11] MEDS ORDERED: MULT1TAB76 PO (10:57)
[2018-10-11] MEDS ORDERED: CHOL400D16 PO (10:57)
[2018-10-11] MEDS ORDERED: ASCO500T6 PO (10:57)
[2018-10-11] MEDS ORDERED: RIVA20TA PO (11:03)
[2018-10-11] MEDS ORDERED: RIVA15TA PO (11:03)
[2018-10-11] MEDS ORDERED: FURO20TA3 PO (11:03)
[2018-10-11 12:30] VITALS: BP 100/58
[2018-10-11] MEDS: CHOLECALCIFEROL 400 UNITS/ML ORAL SOL PO SCH (16:30)
[2018-10-30] MEDS ORDERED: RIVAROXABAN 20 MG TABLET PO SCH (08:00)
== END 2018-10-11 17:30 | DRG 299 ==
LOC: ED 14:17 → EDIP 15:07 → 3NE 17:39
PROVIDERS: ADMIT Hospitalist; ATTEND Hospitalist
DX: I82.413 Acute embolism and thrombosis of femoral vein, bilateral (principal); I50.33 Acute on chronic diastolic (congestive) heart failure; I13.0 Hypertensive heart and chronic kidney disease with heart failure and stage 1 through stage 4 chronic kidney disease, or unspecified chronic kidney disease; E46 Unspecified protein-calorie malnutrition; I82.890 Acute embolism and thrombosis of other specified veins; D64.9 Anemia, unspecified; E78.5 Hyperlipidemia, unspecified; E83.42 Hypomagnesemia; I25.2 Old myocardial infarction; K21.9 Gastro-esophageal reflux disease without esophagitis; Z66 Do not resuscitate; M19.90 Unspecified osteoarthritis, unspecified site; E11.22 Type 2 diabetes mellitus with diabetic chronic kidney disease; N18.9 Chronic kidney disease, unspecified; S31.829A Unspecified open wound of left buttock, initial encounter; S31.819A Unspecified open wound of right buttock, initial encounter; S91.301A Unspecified open wound, right foot, initial encounter; X58.XXXA Exposure to other specified factors, initial encounter; Y93.89 Activity, other specified; Y92.89 Other specified places as the place of occurrence of the external cause; Y99.8 Other external cause status; Z90.49 Acquired absence of other specified parts of digestive tract; Z95.5 Presence of coronary angioplasty implant and graft; Z68.29 Body mass index [BMI] 29.0-29.9, adult; Z86.711 Personal history of pulmonary embolism; Z90.710 Acquired absence of both cervix and uterus
CPT/HCPCS: 36415; 71045; 80053; 80069; 82962; 83735; 83880; 84100; 85025; 85610; 85730; 93005; 93308; 93321; 93325; 93970; 96372; 96374; 99285; G0378; J1650; J1940; J1815; J3475

== ENCOUNTER 2019-11-30 12:42 | Outpatient (CLI) | payer MEDICARE ==
[~2019-11-30 12:42] MED LIST changes: -ACAR50TA3 PEG; +ACAR50TA4 PEG; +ASCO500T9 PO; +AZIT500T10 PO; -AZIT500T5 PO; +CHOL400D6 PO; +FURO20TA3 PO; +GABA300C10 PO; +INSU100I28 SQ; -MAGN400T7 PO; +MAGN400T9 PO; +MULT1TAB76 PO; +POTA10TA5 PO; +SENN-190 PO
== END 2019-11-30 23:59 | disposition home or self-care (01) ==
LOC: CVU 12:42
PROVIDERS: ATTEND Surgery
DX: I82.513 Chronic embolism and thrombosis of femoral vein, bilateral (principal); R60.0 Localized edema
CPT/HCPCS: 93970

== ENCOUNTER 2020-12-15 11:53 | Emergency (ER) | payer MEDICARE, MEDICAID ==
[~2020-12-15] VITALS: Ht 165.1 cm; Wt 80.9 kg
[~2020-12-15 11:53] MED LIST changes: +ACET325T14 PO; -ALEN70TA6 PEG; -ALEN70TA6 PO; +ALEN70TA77 PEG; +ALEN70TA77 PO; +AMLO-211 PEG; +AMLO-211 PO; -AMLO10TA8 PEG; -AMLO10TA8 PO; +APIX2.5T PO; +APIX5TAB PO; +ASCO500C2 PO; +BUME2TAB3 PO; +CALC200T3 PO; +CHOL10003 PO; +CRAN450T3 PO; -CYCL-259 PO; +CYCL10TA2 PO; +GEMF-31 PO; -GEMF600T8 PO; -HYDR-3245 PO; +HYDR1TAB53 PO; +IBUP-1221 PO; +INSU100I28 INJ; +LATA2.5D4 EACHEYE; +LINA5TAB PO; +LOPE-114 PO; +MENT118G TP; +METH-640 PO; +OMEP20TA62 PO; -OXYC-302 PO; +OXYC1TAB12 PO; +POLY1DRO EACHEYE; +SULF-23 PO; -SULF1TAB24 PO
--- NOTE | 2020-12-15 12:48 | NUR ---
KINESIOLOGIST: PT TO ROOM WITH EMS VIA W/C
[2020-12-15] MEDS ORDERED: SODIUM CHLORIDE FLUSH 10ML SYR IVF ONE (13:30)
--- NOTE | 2020-12-15 13:32 | NUR ---
REPORT OF PT FROM [facility] AND ASSUMING CARE OF PT AT THIS TIME.
--- NOTE | 2020-12-15 14:07 | NUR ---
PT RESTING IN [facility] AT THIS TIME WITH NADN AND CALL LIGHT WITHIN REACH. PT VSS AND UPDATED IN EMR. PT DENIES ANY NEEDS AT THIS TIME.
[2020-12-15 14:14] LABS: BASOPHILS % (AUTO) 1 % (0-1); EOSINOPHILS % (AUTO) 2 % (1-7); LYMPHOCYTES % (AUTO) 14 % (22-44); MEAN CORPUSCULAR HEMOGLOBIN 22.8 pg (27.0-34.8); MEAN PLATELET VOLUME 9.2 fL (7.4-10.4); MONOCYTES % (AUTO) 9 % (2-9); NEUTROPHILS % (AUTO) 74 % (42-75); PLATELET COUNT 237 x10^3/uL (130-400); RED BLOOD COUNT 3.21 x10^6/uL (3.82-5.3); RED CELL DISTRIBUTION WIDTH 17.7 % (9.6-15.2)
--- NOTE | 2020-12-15 14:15 | NUR ---
REPORT FROM DAMIEN VARELA, ASSUME CARE OF PT AT THIS TIME. PT SLEEPING INTERMITTENTLY, CALL LIGHT WITHIN REACH.
[2020-12-15 14:19] LABS: ALBUMIN 3.1 g/dL (3.4-5.0); ANION GAP 6 mmol/L (5-15); CALCIUM 9.2 mg/dL (8.5-10.1); CHLORIDE 108 mmol/L (98-107)
[2020-12-15 14:46] LABS: <PLATELET ESTIMATE> ADEQUATE; <PLT MORPHOLOGY> NORMAL PLT MORPH
[2020-12-15 14:50] LABS: ANISOCYTOSIS 1+; MICROCYTOSIS 1+
[2020-12-15 14:51] LABS: OVALOCYTES 1+
[2020-12-15 14:54] LABS: HYPOCHROMIA 2+; TEAR DROPS 1+
--- NOTE | 2020-12-15 15:00 | NUR ---
PT ASSISTED WITH TOILETING AND SANDRA AREA CLEAN UP (INCONTINENT OF URINE). BLOOD SLIP TO BLOOD BANK.
[2020-12-15 15:28] VITALS: BP 157/70
--- NOTE | 2020-12-15 15:37 | NUR ---
BLOOD TRANSFUSION STARTED. VSS. CALL LIGHT WITHIN REACH.
[2020-12-15 15:54] VITALS: BP 147/79
--- NOTE | 2020-12-15 16:00 | NUR ---
ED DIET TRAY PROVIDED. PT SITTING UP, EATING, NO DISTRESS. BLOOD TRANSFUSING.
--- NOTE | 2020-12-15 17:25 | NUR ---
CALL TO [facility] ([facility] SPOKE WITH ALISE. NO FACILITY TRANSPORT PROVIDED BY [facility] AND PT IS WC BOUND-UNABLE TO RIDE IN [facility]. THROUGHPUT RN NOTIFIED OF NEED FOR TRANSPORT.
--- NOTE | 2020-12-15 17:41 | NUR ---
MESSAGE LEFT FOR [employer]
--- NOTE | 2020-12-15 17:46 | NUR ---
[facility] ETA 1830
[2020-12-15 17:49] VITALS: BP 136/74
--- NOTE | 2020-12-15 18:17 | NUR ---
PT ASSISTED IN GETTING CLEANED UP, INCONTINENT OF LARGE AMOUNT OF URINE. SOCKS PROVIDED, CLEAN GOWN. CALL LIGHT WITHIN REACH.
== END 2020-12-15 18:57 | disposition home or self-care (01) ==
LOC: ED 16:33
DX: D50.9 Iron deficiency anemia, unspecified (principal); I10 Essential (primary) hypertension; I25.2 Old myocardial infarction; K21.9 Gastro-esophageal reflux disease without esophagitis; E78.5 Hyperlipidemia, unspecified; Z86.718 Personal history of other venous thrombosis and embolism; Z90.89 Acquired absence of other organs; Z90.49 Acquired absence of other specified parts of digestive tract; Z90.710 Acquired absence of both cervix and uterus; Z98.61 Coronary angioplasty status; Z88.1 Allergy status to other antibiotic agents; Z88.0 Allergy status to penicillin
CPT/HCPCS: 36415; 36430; 80048; 82040; 85025; 86850; 86900; 86923; 99285; P9016